=== PATIENT | female | born 1950 | race Caucasian/White ===

== ENCOUNTER 2020-05-18 10:56 | Inpatient (IN) | payer MEDICARE, SELFPAY ==
[2020-05-18] VITALS (18 sets, daily range): BP systolic 123–170; BP diastolic 71–113; PULSE 55–108; RESP 15–18; TEMP 36.1–36.9; O2SAT 96–100; BMI 52.4; BMI 51.0
--- NOTE | 2020-05-18 10:59 | EKG12_ITS ---
Test Reason : STROKE Blood Pressure : / mmHG Vent. Rate : 085 BPM Atrial Rate : 066 BPM P-R Int : 000 ms QRS Dur : 126 ms QT Int : 422 ms P-R-T Axes : 000 017 035 degrees QTc Int : 502 ms Atrial fibrillation Right bundle branch block Abnormal ECG Confirmed by ADRIANE PIERSON, JULISSA ([id number]), photo editor TANJA WILKERSON ([id number]) on 05/31/2020 9:41:26 A M Referred By: VELMA Confirmed By:MARCELLA FORREST MD
--- NOTE | 2020-05-18 10:59 | CT_ITS ---
STUDY: CT BRAIN WITHOUT CONTRAST REASON FOR EXAM: Female, 70 years old. Stroke symptoms, left sided facial droop, slurred speech, diabetic, fall recently RADIATION DOSAGE (If Supplied By Facility): CTDIvol = ( 44.99 ) mGy, DLP = ( 829.85 ) mGycm TECHNIQUE: Transaxial CT imaging of the brain was performed without administration of intravenous contrast material. Individualized dose optimization techniques were used for this CT. COMPARISON: No relevant priors. FINDINGS: Scalp hematoma overlying the right frontal parietal bone. Normal calvarium. There is effacement of the sulci overlying the right temporal parietal lobe with edematous changes suggestive of infarction involving the distribution of the right middle cerebral artery territory. There are areas of decreased attenuation within the white matter tracts of the supratentorial brain, consistent with microvascular disease changes. Old lacunar infarct in the insular cortex of the left temporal lobe. Normal brainstem. Normal cerebellum. There is no intracranial hemorrhage. There are no findings of an acute ischemic infarction. Normal visualized paranasal sinuses. CT/Brain/Head without Contrast IMPRESSION: Findings in keeping with infarction involving the right middle cerebral artery territory. N.B. : The above information has been verbally conveyed by Shaggy Pace to Dr Jimi MD, on 05/18/2020 11:19:01 (ET). Electronically Signed: Shaggy Pace, at 11:20 EDT , Service support ,
--- NOTE | 2020-05-18 11:06 | CT_ITS ---
STUDY: CTA HEAD AND NECK WITH CONTRAST REASON FOR EXAM: Female, 70 years old. CVA, left facial droop, slurred speech, hx diabetes. RADIATION DOSAGE (If Supplied By Facility): CTDIvol = ( 27.59 ) mGy, DLP = ( 790.93 ) mGycm TECHNIQUE: CT angiography was performed with a multi-detector CT scanner. Data acquisition was obtained from the skull base through the vertex following intravenous administration of IV 100mL [id number]-[id number]. MIP images were reconstructed from the axial data set. Post-processing of the angiographic images was performed, with multiplanar reformation and 3D reconstruction. Individualized dose optimization techniques were used for this CT. COMPARISON: No relevant priors. FINDINGS: Normal bilateral petrous carotid arteries. There is calcified plaque formation of the right cavernous carotid artery, without a cross-sectional luminal stenosis. There is calcified plaque formation of the left cavernous carotid artery, without a cross-sectional luminal stenosis. Normal right A1 segments of the anterior cerebral artery. Normal left A1 segments of the anterior cerebral artery. Normal intact anterior communicating artery (ACOM). Normal bilateral A2 segments of the anterior cerebral arteries. Normal right M1 and M2 segments of the middle cerebral arteries, with a normal M1 bifurcation. Normal left M1 and M2 segments of the middle cerebral arteries, with a normal M1 bifurcation. Normal right posterior communicating artery (PCOM). Normal left posterior communicating artery (PCOM). Normal bilateral vertebral arteries. Normal basilar artery with a normal basilar bifurcation. The visualized bilateral superior cerebellar (SCA) arteries are normal. Normal bilateral P1, P2 and visualized P3 segments of the posterior cerebral arteries. There is no demonstrated aneurysm of the hoopa of [place]. AORTIC ARCH: There is atherosclerotic calcific plaque formation of the aortic arch and great vessels arising from the aortic arch, without a hemodynamically significant stenosis. There is a normal origin of the brachiocephalic, left common carotid, and left subclavian arteries. . RIGHT CAROTID ARTERIES: Normal right common carotid artery (CCA). Normal right common carotid bulb. There is mild atherosclerotic plaque formation of the origin of the right internal carotid artery with less than 50% cross sectional diameter stenosis. Normal visualized cervical portion of the right internal carotid artery. Normal origin of the right external carotid artery (ECA). LEFT CAROTID ARTERIES: Normal left common carotid artery (CCA). Normal left common carotid bulb. There is moderate atherosclerotic plaque formation of the origin of the left internal carotid artery with an estimated stenosis of 50-69% stenosis. Normal visualized cervical portion of the left internal carotid artery. Normal origin of the left external carotid artery (ECA). VERTEBRAL ARTERIES: Normal bilateral vertebral arteries. Prior anterior fusion at the C5-C6 level. CT/CTA Head AND Neck W/ Contrast IMPRESSION: Calcified plaques at the origin of the right internal carotid artery causing less than 50% narrowing. Calcified plaques at the level of the origin of the left internal carotid artery causing between 50 and 69% stenosis. Electronically Signed: Shaggy Pace, at 11:39 EDT , Service support ,
--- NOTE | 2020-05-18 11:25 | CM.ED ---
SOCIAL WORK Reason for Consult: Stroke Alert Responded to Stroke Alert, patient's daughter at bedside. Patient and Dr. Krause on consult with [facility]. This worker to remain available for needs. Miri Parra, HISTORIAN RESEARCH ASSISTANT, HEALTH TECHNICAL WRITER
[2020-05-18] MEDS: 0.9% Normal Saline 1,000 ML 999 ML IV (11:45)
[2020-05-18 11:59] LABS: Absolute Lymphocyte Count 1.15 X10^3/uL (0.83-4.51); Absolute Neutrophil Count 9.1 X10^3/uL (2.0-7.7); Basophil# 0.03 X10^3/uL; Basophil% 0.3 % (0-1); Eosinophil# 0.14 X10^3/uL; Eosinophils% 1.2 % (0-5); Hematocrit 35.2 % (37-47); Hemoglobin 10.8 g/dL (12.0-15.0); International Normalized Ratio 1.2; Lymphocyte # 1.15 X10^3/ul (4.0); Lymphocyte % 10.2 % (19-41); Mean Corp Hgb Conc 30.7 g/dL (32-36); Mean Corpuscular Volume 101.1 fL (81-99); Mean Platelet Vol. 9.4 fl (6.2-12.0); Monocyte# 0.67 X10^3/uL; NRBC Flagged by Analyzer 0 % (0-5); Neutrophil # 9.11 X10^3/uL (2.7-7.7); Platelet Count 228 K/mm3 (150-450); Prothrombin Time (Protime)PT. 14.8 SECONDS (11.7-14.9); RBC Distribution Width CV 15.3 % (11.6-14.6); RBC Distribution Width SD 56.2 fl (35.1-43.9); Red Blood Count 3.48 M/mm3 (4.2-5.4); White Blood Count 11.3 K/mm3 (4.4-11.0)
[2020-05-18 12:00] LABS: Partial Thromboplast Time 29.2 Seconds (24.1-36.2)
--- NOTE | 2020-05-18 12:07 | ED.VISSUMM ---
- ER Visit Summary Date of Service: 05/18/20 Chief Complaint: Decreased level of consciousness History of Present Illness: The patient is a [address] Lynn. Daughter reports that at 4:00 this morning she heard the patient in the bathroom and went in and she had fallen in the bathtub. Patient told her that she was standing up to pull up her pants when she lost her balance. She did not have a loss of consciousness. She was seen in outlying emergency department and had a CT, blood work, and x-ray, and UA that were negative. She was discharged to home. Daughter reports they were home for approximately 45 minutes and the patient has been fine when all of a sudden she had onset of a left facial droop and difficulty speaking. Daughter reports that she called the squad immediately. Accu-Chek by them was 170s. She did not see any seizure activity. Physical Examination: Vitals: Stable. Afebrile. General: Well-nourished and well-developed. Head: Normocephalic atraumatic. Neck: Supple, no lymphadenopathy. No JVD. Nontender. Cardiovascular: Regular rate and rhythm. No murmurs. Respiratory: No respiratory distress. Clear to auscultation bilaterally. Abdominal: Soft, nontender, nondistended, normal bowel sounds. No guarding, rebound, or peritoneal signs. Back: Nontender. Extremities: Nontender, no edema. Skin: Normal color, no rash. Neurologic: Upon arrival to the emergency department the patient is unresponsive. Psych: Normal affect. Test Results: EKG is A. fib 85 with a right bundle branch block. There is no old EKG for comparison. CBC shows a white count of 11.3 with 81 segmented neutrophils, 10 lymphocytes, 1.3% immature granulocytes. H&H 10.8 and 35.2. INR is 1.2. PTT is 29.2. BMP shows a chloride of 110, BUN 34, creatinine 1.3, glucose 168, calcium 7.8. Clinical Impression(s) from Imaging Studies Brain CT 05/18/20 10:59 IMPRESSION: Findings in keeping with infarction involving the right middle cerebral artery territory. N.B. : The above information has been verbally conveyed by Shaggy Pace to Dr Jimi MD, on 05/18/2020 11:19:01 (ET). Electronically Signed: Shaggy Campbellelizabeth, at 11:20 EDT , Service support , ADDENDUM: 05/18/20 1127 IMPRESSION: Findings in keeping with infarction involving the right middle cerebral artery territory. N.B. : The above information has been verbally conveyed by Shaggy Pace to Dr Jimi MD, on 05/18/2020 11:19:01 (ET). Electronically Signed: Shaggy Sanjeev, at 11:20 EDT , Service support , Head/Neck CTA 05/18/20 11:06 IMPRESSION: Calcified plaques at the origin of the right internal carotid artery causing less than 50% narrowing. Calcified plaques at the level of the origin of the left internal carotid artery causing between 50 and 69% stenosis. Electronically Signed: Shaggy Sanjeev, at 11:39 EDT , Service support , Emergency Department Course and Treatment: When the patient returned from CT she now arouses to voice and answers yes/no questions appropriately. She is able to move all of her extremities. Her NIH scale is 8 when she got back from CT. She does have a left facial droop and seems to have some weakness of her left upper extremity. She was discussed with the neurologist at [facility]. As the CT already shows a stroke there is question as to the timeframe of the onset of this. It may have started at 4:00 this morning and not shown up on her prior CT. This combined with the fact the patient's had a spontaneous intracranial hemorrhage while she was on Eliquis(nontraumatic) she is not felt to be a TPA candidate. Treatment Plan: The patient will be discussed with the hospitalist and admitted for further evaluation and treatment. Disposition: Admitted in serious condition. Impression: 1. Stroke. 2. Atrial fibrillation. 3. Critical care time 30 minutes. This note was generated with i-[email or web address] software. It may contain incorrect words, spelling, and punctuation that were not noted in review of the chart prior to signing ED Disposition - Plan for ED Patient: Referrals: Care Physician,No Primary [NON-STAFF] -
[2020-05-18 12:11] LABS: Anion Gap 4 (5-15); BUN 34 mg/dL (7-18); BUN/Creat Ratio 26.2 RATIO (10-20); Calcium,Total 7.8 mg/dL (8.5-10.1); Chloride 110 mmol/L (98-107); EST Glomerular Filtration Rate 43 mL/min (>60); Est Glom Filt Rate - Afr Amer 52 mL/min (>60); Estimated Creatinine Clearance 32.76 ml/min; Glucose 168 mg/dL (74-106); Potassium 4.3 mmol/L (3.5-5.1); Sodium Level 142 mmol/L (136-145)
--- NOTE | 2020-05-18 12:25 | RAD_ITS ---
STUDY: X-RAY CHEST REASON FOR EXAM: Female, 70 years old. Facial droop, slurred speech, fall today. TECHNIQUE: Single AP portable view of the chest. COMPARISON: None. FINDINGS: EKG electrodes are seen. Vascular congestion. Scattered calcified granulomas. There is no demonstrated pleural abnormality. There is moderate cardiac enlargement. Normal mediastinum and deb. Normal visualized pulmonary arteries. There is atherosclerotic calcification of the aortic arch with tortuosity. There are degenerative changes of the visualized thoracic spine. Prior fusion in the lower cervical spine. There is no demonstrated abnormality of the visualized soft tissue structures of the upper abdomen. RAD/Chest 1 View IMPRESSION: Cardiomegaly and vascular congestion. Electronically Signed: Shaggy Pace, at 12:44 EDT , Service support ,
[2020-05-18] MEDS: 0.9% Normal Saline 1,000 ML 100 ML IV (12:52)
--- NOTE | 2020-05-18 14:22 | ECHOCS_ITS ---
Reason For Study: TIA/CVA Procedure This was a 2D Doppler, Color Flow transthoracic echocardiogram. The study was technically difficult. Contrast injection was performed. Exam performed portable in patient room. Left Ventricle Normal LV size. Left ventricular systolic function is normal. The estimated ejection fraction is 65 %. Unable to assess diastolic dysfunction. No regional wall motion abnormalities noted. Right Ventricle Normal RV size. Normal systolic function. Atria The left atrium is mildly enlarged. The right atrium is mildly enlarged. No doppler evidence for ASD. Bubble contrast study negative for right to left interatrial shunt. Mitral Valve There is moderate mitral annular calcification. Extension of the mitral annular calcification onto the base of the posterior mitral valve leaflet. Trivial mitral valve insufficiency. Tricuspid Valve Normal tricuspid valve. Trivial tricuspid valve insufficiency. Right ventricular systolic pressure estimated to be 40 mmHg. Aortic Valve Trisinus/trileaflet aortic valve. Mild diffuse aortic valve thickening. Mild focal aortic valve calcification. Pulmonic Valve The pulmonic valve is not well visualized. Great Vessels Normal sized aortic root. Pericardium/Pleural No pericardial effusion. Medication Performed a rapid injection of agitated mix of 9 cc saline and 1cc air to assess for atrial septal defect. Diluted definity 5ml given slow IV push to enhance endocardial definition. MMode/2D Measurements & Calculations LVIDd: 4.1 cm IVSd: 1.3 cm Ao root diam: 3.2 cm LVIDs: 2.7 cm LVPWd: 1.3 cm FS: 34.6 % LAV(MOD-bp): 62.9 ml LVAd ap4: 23.5 cm2 SV(MOD-sp4): 40.5 ml LAV(MOD-bp) Indexed: 28.2 ml/m2 EDV(MOD-sp4): 62.8 ml LAV(MOD-sp2): 59.9 ml EDV(sp4-el): 66.2 ml LAV(MOD-sp4): 61.1 ml LVAs ap4: 12.3 cm2 ESV(MOD-sp4): 22.3 ml ESV(sp4-el): 23.2 ml EF(MOD-sp4): 64.4 % EF(sp4-el): 65.0 % SV(sp4-el): 43.1 ml LA A4 area: 21.6 cm2 LA dimension(2D): 3.8 cm RA A4 area: 22.3 cm2 Doppler Measurements & Calculations MV E max yoshi: 151.2 cm/sec Ao V2 max: 145.0 cm/sec LV V1 max: 80.7 cm/sec Ao max P.5 mmHg LV V1 max P.6 mmHg PA V2 max: 134.0 cm/sec TR max yoshi: 302.3 cm/sec TR max P.5 mmHg Interpretation Summary The study was technically difficult. Contrast injection was performed. Left ventricular systolic function is normal. The estimated ejection fraction is 65 %. The left atrium is mildly enlarged. The right atrium is mildly enlarged. There is moderate mitral annular calcification. Extension of the mitral annular calcification onto the base of the posterior mitral valve leaflet. Trivial mitral valve insufficiency. Trivial tricuspid valve insufficiency. Mild diffuse aortic valve thickening. Mild focal aortic valve calcification. Right ventricular systolic pressure estimated to be 40 mmHg. Unable to assess diastolic dysfunction. Bubble contrast study negative for right to left interatrial shunt. Ordering Physician: Ang Chen Referring Physician: LARRY DECKER Performed By: Meg Street RDCS
--- NOTE | 2020-05-18 15:09 | MRI_ITS ---
We are attempting to reach an attending provider to discuss findings. An addendum with communication details will be sent when the communication is complete. STUDY: MRI BRAIN WITHOUT CONTRAST REASON FOR EXAM: Female, 70 years old. cva, found unresponsive, lt facial droop, slurred speech; TECHNIQUE: Standardized multiplanar fat and water weighted pulse sequences were obtained. COMPARISON: CT of the brain 05/18/2020 FINDINGS: Mild atrophy and moderate periventricular white matter ischemic changes.. There is restricted diffusion in the right temporal frontal and parietal lobes in distribution of the right middle cerebral artery consistent with acute ischemic infarction. There is focal gliosis within the left pontine body at the pontomesencephalic junction consistent with acute ischemic changes There is also restricted diffusion within the right basal ganglia and body of the caudate nucleus consistent with acute lacunar infarct.. There is no extra-axial fluid accumulation. Normal flow voids within the major intracranial circulation suggesting patency by spin echo criteria. Normal sella turcica, pituitary gland, infundibular stalk, optic chiasm and hypothalamus. Normal tectal plate and pineal gland. Normal midbrain, getachew and medulla. Normal cerebellum. Normal basal cisterns. Normal bilateral temporal bones. Normal bilateral internal auditory canals. No demonstrated orbital abnormality, within the constraints of a routine brain study. There is minor mucosal thickening of the ethmoid air cells bilaterally.. Normal calvarium and skull base. Normal visualized soft tissue structures. Normal visualized upper cervical spine. MRI/Brain without Contrast IMPRESSION: Acute ischemic changes in the right temporal frontal and parietal lobes. Acute lacunar infarct in right basal ganglia and body of the caudate nucleus. Acute brainstem infarct at the left pontomesencephalic junction. Electronically Signed: Micky Lim MD at 18:55 EDT , Service support ,
--- NOTE | 2020-05-18 15:27 | NURSING ---
Pt ambulated in to door and back to bed on 4l n/c. Pulse ox dropped to 83% on the 4L. Pt sat on side of bed and purse lipped breathed in orthopneic position until pulse ox retuned to 92%. Took a few minutes to recover.
--- NOTE | 2020-05-18 15:50 | PCM.HP.STD ---
Problem List (1) CVA (cerebral vascular accident) Status: Acute (2) Hemorrhagic stroke Status: Resolved (3) TIA (transient ischemic attack) Status: Resolved (4) Afib Status: Chronic (5) Morbid obesity Status: Chronic (6) Diabetes Status: Chronic History of Present Illness Date of Admission: 05/18/20 Chief Complaint: altered mental status The patient is a 70 year old F with pmhx of hemorrhagic stroke, TIA, diabetes, morbid obesity, who presented to the ER with altered mental status. The patient is currently very lethargic and minimally responsive to questions, and family is not currently present so her history is primarily sourced from the records. She fell in the bathtub this morning, reportedly lost balance while she was trying to put on pants. She went to an ER and had a negative work-up and was sent home. She later developed left facial droop and difficulty speaking at home. This occurred about 45 minutes after arriving at home. She was brought to the emergency room where a CT of the brain revealed a MCA infarct. The patient demonstrated atrial fibrillation on EKG. She is not on anticoagulation as she has had a hemorrhagic stroke in the past. She is also had TIAs. She is only on aspirin. She in the past was on Plavix however does not take this because of her history of hemorrhagic stroke as well. She is currently resting in bed in no acute distress. She is difficult to awaken, falls back to sleep almost immediately, was only able to answer her name. She would not answer other questions. [] Past Medical History Past Medical History (Chronic Problems): Chronic Problems Afib (Chronic) Morbid obesity (Chronic) Diabetes (Chronic) Allergies Penicillins Allergy (Verified 05/18/20 12:14) PT UNABLE TO RESPOND-NEEDS F/U Home Medications: Ambulatory Orders Medication Instructions Recorded Atorvastatin Calcium 20 mg PO DAILY 05/18/20 Carbidopa/Levodopa 1 ea PO TID 05/18/20 [Carbidopa-Levodopa 25-250 Tab] Carvedilol [Coreg] 25 mg PO BID 05/18/20 Cyanocobalamin (Vitamin B-12) 1,000 mcg PO DAILY 05/18/20 [Vitamin B-12] Furosemide [Lasix] 40 mg PO DAILY 05/18/20 Glimepiride [Amaryl] 2 mg PO DAILY 05/18/20 Magnesium Oxide [Magnesium] 400 mg PO BID 05/18/20 Multivitamins,Therapeutic 1 tab PO DAILY 05/18/20 [Multivitamin] Venlafaxine HCl [Effexor Xr] 75 mg PO QHS 05/18/20 Venlafaxine HCl [Effexor] 150 mg PO BREAKFAST 05/18/20 Verapamil HCl [Verapamil ER] 240 mg PO DAILY 05/18/20 KILN FEEDER History: No pertinent KILN FEEDER history Smoking Status: Unknown if ever smoked Tobacco Use: Non-smoker Review of Systems Unable to obtain accurate/complete ROS d/t: ROS unable to be obtained due to patient with altered mental status VTE Information - Inpt Only VTE Present on Admission: No VTE Mechan Device Prophylaxis: None VTE Pharm Prophylaxis ordered?: Yes - Physical Exam Vitals/I&O's: Vital Signs Temp Pulse Resp BP Pulse Ox 98.3 F 82 18 136/108 H 96 05/18/20 14:23 05/18/20 15:01 05/18/20 14:48 05/18/20 14:23 05/18/20 14:48 Oxygen Flow Rate (L/min) 3 Oxygen Delivery Method Nasal Cannula Weight: 279 lb Body Mass Index (BMI) 51.0 Finger Stick Blood Glucose 170 Intake and Output for Last 24 Hours 05/16/20 05/17/20 05/18/20 23:59 23:59 23:59 Intake Total 1000 / 1000 Balance 1000 / 1000 General: Alert, Confused, Lethargic HEENT: Atraumatic, PERRLA, EOMI, Normocephalic Neck: Supple, No JVD, Negative Carotid Bruits Lungs: Clear to auscultation, Normal air movement Cardiovascular: Regular rate, No murmurs Abdomen: Bowel Sounds Present, Soft, Non Tender Extremities: No edema, Capillary Refill Less than 3 Seconds Skin: No rashes, No breakdown Musculoskeletal: No Tenderness to Palpation of Joints or Extremities Neurological: - - Limited due to inability to follow commands. Patient only answering her name at this point. Psych/Mental Status: - - Lethargic, confused Laboratory Results 05/18/20 10:55: WBC 11.3 H, RBC 3.48 L, Hgb 10.8 L, Hct 35.2 L, MCV 101.1 H, MCH 31.0, MCHC 30.7 L, RDW Std Deviation 56.2 H, RDW Coeff of Ever 15.3 H, Plt Count 228, MPV 9.4, Immature Gran % (Auto) 1.300 H, Neut % (Auto) 81.0 H, Lymph % (Auto) 10.2 L, [place] % (Auto) 6.0, Eos % (Auto) 1.2, Baso % (Auto) 0.3, Absolute Neuts (auto) 9.1 H, Absolute Lymphs (auto) 1.15, Nucleated RBC % 0 05/18/20 10:55: PT 14.8, INR 1.2, APTT 29.2 05/18/20 10:55: Sodium 142, Potassium 4.3, Chloride 110 H, Carbon Dioxide 28.0, Anion Gap 4 L, BUN 34 H, Creatinine 1.30 H, Estim Creat Clear Calc 32.76, Est GFR (MDRD) Af Amer 52 L, Est GFR (MDRD) Non-Af 43 L, BUN/Creatinine Ratio 26.2 H, Glucose 168 H, Calcium 7.8 L, Troponin I < 0.015 Current Medications Hydralazine HCl (Hydralazine 20 Mg/Ml Vial) 5 mg IV Q30M PRN PRN Reason: to maintain BP goals Sodium Chloride () 1,000 mls @ 100 mls/hr IV .Q10H ONE Stop: 05/18/20 20:58 Last Admin: 05/18/20 12:52 Dose: 100 mls/hr Documented by: Influenza Virus Vaccine Quadrival (Influenza Vaccine (6mos+)/Pf 0.5 Ml Syringe) 0.5 ml IM .ONCE ONE Stop: 05/19/20 10:01 Labetalol HCl (Labetalol (Prefilled) 20 Mg/4 Ml) 10 - 20 mg IV Q10M PRN PRN PRN Reason: to Maintain BP Goals Sodium Chloride (0.9% Saline Lock 10 Ml Syringe) 10 - 40 ml IV UD PRN PRN Reason: SALINE FLUSH Assessment/Plan All Active Problems CVA (cerebral vascular accident) (Acute) Hemorrhagic stroke (Resolved) TIA (transient ischemic attack) (Resolved) 1. CVA-acute versus subacute-present on CT of the brain. CTA of the head and neck with 50 to 69% stenosis left internal carotid artery. History of hemorrhagic stroke. EKG with atrial fibrillation. Obtain MRI of the brain. Consult neurology in the morning. Echocardiogram in the morning. PT OT, ST eval's. She will likely need to continue aspirin and atorvastatin. Needs speech clearance for swallowing. Trop neg. 2. Atrial fibrillation-cannot have anticoagulation due to history of hemorrhagic stroke. Rate is controlled. Will maintain on telemetry. Patient is on verapamil at home. 3. History of Parkinson's - continue carbidopa, levodopa 4. Type 2 diabetes with morbid obesity -hold glimepiride-start sliding scale insulin. Check hemoglobin A1c. Office Support Specialist consult when pt ok for PO. 5. Suspected CKD stage III-Baseline unclear, will trend BMP. 6. Macrocytic anemia - check b12 / folate. unclear baseline. DVT prophylaxis: Lovenox Discharge planning: Fell at home this morning, no acute stroke, likely will need care home at the time of discharge. This patient was seen by Mahendra Rivers PA-C under the supervision of Doctor Chen.
--- NOTE | 2020-05-18 15:56 | NURSING ---
pt off floor to CT
[2020-05-18 17:34] LABS: Hemoglobin A1c 8.2 % (3.8-5.6)
--- NOTE | 2020-05-18 18:08 | NURSING ---
Pt in MRI, restless, MRI staff called and asked for nurse to come evaluate pt. Pulse ox 95% on 4l n/c. no resp distress noted. pt was restful at that time. MRI staff will call if they need ativan.
[2020-05-18] MEDS: Enoxaparin 40 MG/0.4 ML Syringe SC (18:46)
[2020-05-19] VITALS (8 sets, daily range): BP systolic 151–179; BP diastolic 82–104; PULSE 78–104; RESP 16–19; TEMP 36.8–37.4; O2SAT 95–99; BMI 51.0
[2020-05-19] MEDS: Acetaminophen 650 MG Suppository RECTAL ×2 (00:29→20:40)
[2020-05-19] MEDS: Enoxaparin 40 MG/0.4 ML Syringe SC (05:49)
[2020-05-19 06:52] LABS: Cholesterol 94 mg/dL (200); High Density Lipoprotein 32 mg/dL; Triglycerides 226 mg/dL; Very Low Density Lipoprotein 45 mg/dL (5-40)
--- NOTE | 2020-05-19 15:30 | PCM.PROGNOTE ---
Patient Problems: Active and Suspected Problems CVA (cerebral vascular accident) (Acute) Subjective: Patient was seen and examined today, she remains somnolent today, speech therapy placed her on a diet if she is alert enough to eat. Patient's MRI of the brain resulted as showing an acute infarction on the right temporal, frontal and parietal lobes, in addition there was an acute lacunar infarct in the right basal ganglia and body of the caudate nucleus, and an acute brainstem infarct at the left pontomesencephalic junction. I have not talked to the daughter regarding these findings. Patient will not be a candidate for any anticoagulation for 10 to 14 days however. Patient's echocardiogram did not show any evidence of thrombus, patient's EF was 65%. Patient had mild pulmonary hypertension. - Physical Exam Vitals/I&O's: Vital Signs Temp Pulse Resp BP Pulse Ox 99.5 F H 95 18 178/116 H 94 05/19/20 09:40 05/19/20 11:00 05/19/20 09:40 05/19/20 09:40 05/19/20 09:40 Oxygen Flow Rate (L/min) 2.5 Oxygen Delivery Method Nasal Cannula Weight: 126.552 kg Body Mass Index (BMI) 51.0 Finger Stick Blood Glucose 170 Intake and Output for Last 24 Hours 05/17/20 05/18/20 05/19/20 23:59 23:59 23:59 Intake Total 1321 / 1321 1060 / 1060 Output Total 300 / 800 1000 / 1000 Balance 1021 / 521 60 / 60 General: No apparent distress, Well developed, Well nourished, Lethargic HEENT: Atraumatic, PERRLA, EOMI, Normocephalic Oral: Moist Mucosa Neck: Supple, No JVD, No Nuchal Rigidity, Trachea Midline Lungs: Clear to auscultation, Normal air movement, No rhonchi, No wheeze Cardiovascular: No murmurs, PMI Normal, Irregular Rate, No rub noted Abdomen: Bowel Sounds Present, Soft, Non Tender, Non-Distended, Obese Extremities: No clubbing, No cyanosis, Capillary Refill Less than 3 Seconds Skin: No rashes, No breakdown Neurological: Cranial nerves II-XII grossly intact, Sensory exam intact to light touch and pain, - - Patient is somnolent and I am unable to carry out a complete neurological examination. Psych/Mental Status: - - She is somnolent at this time and she does not arouse to verbal stimuli Laboratory Results 05/18/20 10:55: Folate 6.90 05/18/20 10:55: Hemoglobin A1c 8.2 H 05/19/20 05:45: Triglycerides 226 H, Cholesterol 94, LDL Cholesterol 17, VLDL Cholesterol 45 H, HDL Cholesterol 32 L 05/19/20 05:45: Vitamin B12 Pending Current Medications Acetaminophen (Acetaminophen 650 Mg Suppository) 650 mg RECTAL Q4H PRN PRN PRN Reason: pain 1-10, fever Last Admin: 05/19/20 00:29 Dose: 650 mg Documented by: Atorvastatin Calcium (Atorvastatin Calcium 80 Mg Tablet) 80 mg PO QHS [facility] Carbidopa/Levodopa (Carbidopa/Levodopa 25/250 Tablet) 1 tablet PO TIDAC [facility] Carvedilol (Carvedilol 12.5 Mg Tablet) 12.5 mg PO BID [facility] Enoxaparin Sodium (Enoxaparin 40 Mg/0.4 Ml Syringe) 40 mg SC DAILY@0600 [facility] Last Admin: 05/19/20 05:49 Dose: 40 mg Documented by: Furosemide (Furosemide 40 Mg Tablet) 40 mg PO DAILY [facility] Hydralazine HCl (Hydralazine 20 Mg/Ml Vial) 5 mg IV Q30M PRN PRN Reason: to maintain BP goals Insulin Human Lispro (Insulin Lispro 100 Unit/Ml Insuln.Pen) 0 unit SC Q6 [facility]; Protocol Labetalol HCl (Labetalol (Prefilled) 20 Mg/4 Ml) 10 - 20 mg IV Q10M PRN PRN PRN Reason: to Maintain BP Goals Sodium Chloride (0.9% Saline Lock 10 Ml Syringe) 10 - 40 ml IV UD PRN PRN Reason: SALINE FLUSH Venlafaxine HCl (Venlafaxine Xr 75 Mg Capsule) 225 mg PO DAILY [facility] Medical Necessity - Tobacco Use Smoking Status: Never smoker Tobacco Use: Non-smoker Assessment/Plan All Active Problems CVA (cerebral vascular accident) (Acute) Hemorrhagic stroke (Resolved) TIA (transient ischemic attack) (Resolved) #1 acute strokes in multiple areas of the brain and brainstem, secondary to probable emboli due to chronic atrial fib-again patient will not be able to be anticoagulated for 10 to 14 days, I will discuss this with the daughter tomorrow. To new PT and OT, patient will most likely have to be placed in a retirement facility at least short-term. #2 chronic atrial fibrillation-patient is not anticoagulated due to past history of hemorrhagic stroke, it would be hazardous to anticoagulate the patient at this time #3 morbid obesity #4 type 2 diabetes #6 chronic hypoxic respiratory failure #7 obstructive sleep apnea-noncompliant with CPAP Inpatient E&M: 43640 Subs Hosp L2
[2020-05-19] MEDS: Carbidopa/Levodopa 25/250 Tablet PO (16:19)
[2020-05-19 18:30] LABS: Bedside Glucose 152 mg/dL (70-110)
[2020-05-19] MEDS: Insulin Lispro 100 UNIT/ML INSULN.PEN SC (18:30)
[2020-05-19] MEDS: Carvedilol 12.5 MG Tablet PO (20:40)
[2020-05-19] MEDS: Atorvastatin Calcium 80 MG Tablet PO (20:40)
[2020-05-19 23:41] LABS: Bedside Glucose 127 mg/dL (70-110)
[2020-05-20] VITALS (12 sets, daily range): BP systolic 112–197; BP diastolic 50–126; PULSE 48–102; RESP 16–20; TEMP 36–36.9; O2SAT 48–98; BMI 51.0
[2020-05-20] MEDS: Acetaminophen 650 MG Suppository RECTAL (03:25)
[2020-05-20] MEDS: 0.9% Saline Lock 10 ML Syringe IV (05:36)
[2020-05-20] MEDS: Haloperidol Lactate 5 MG/ML Vial IV (05:36)
[2020-05-20] MEDS: Enoxaparin 40 MG/0.4 ML Syringe SC (05:59)
[2020-05-20] MEDS: Carbidopa/Levodopa 25/250 Tablet PO ×3 (06:00→16:14)
[2020-05-20] MEDS: Verapamil SR 240 MG Tablet PO (06:37)
[2020-05-20 06:50] LABS: Bedside Glucose 145 mg/dL (70-110)
[2020-05-20] MEDS: Carvedilol 25 MG Tablet PO (08:23)
[2020-05-20] MEDS: Venlafaxine XR 75 MG Capsule 225 MG PO (08:23)
[2020-05-20] MEDS: Furosemide 40 MG Tablet PO (08:24)
--- NOTE | 2020-05-20 11:27 | PN_ITS ---
Patient Problems: Active and Suspected Problems CVA (cerebral vascular accident) (Acute) Reason for Visit: stroke Subjective: pt more alert today. she is forgeful repeating questions soon after being answered. No fever/chills. No cough/sob. Ongoing generalized weakness. Pt denies laterality to weakness. No dizziness/LH/vision change. Vitals/I&O's: Vital Signs Temp Pulse Resp BP Pulse Ox 98.4 F 80 16 138/87 H 96 05/20/20 11:03 05/20/20 11:03 05/20/20 11:03 05/20/20 11:03 05/20/20 11:03 Oxygen Flow Rate (L/min) 2 Oxygen Delivery Method Nasal Cannula Weight: 278 lb 15.99 oz Body Mass Index (BMI) 51.0 Finger Stick Blood Glucose 170 Intake and Output for Last 24 Hours 05/18/20 05/19/20 05/20/20 23:59 23:59 23:59 Intake Total 1321 / 1321 1300 / 1300 120 / 120 Output Total 300 / 800 1700 / 1700 150 / 150 Balance 1021 / 521 -400 / -400 -30 / -30 General: Alert, Oriented x3, Cooperative HEENT: Atraumatic, PERRLA, EOMI, Normocephalic Neck: Supple, No JVD, Negative Carotid Bruits Lungs: Clear to auscultation, Normal air movement Cardiovascular: Regular rate, No murmurs Abdomen: Bowel Sounds Present, Soft, Non Tender Extremities: No edema, Capillary Refill Less than 3 Seconds Skin: No rashes, No breakdown Musculoskeletal: No Tenderness to Palpation of Joints or Extremities, - - 2/6 weakness upper/lower extrem = bilaterally Neurological: Cranial nerves II-XII grossly intact Psych/Mental Status: Normal Affect, Appropriate, Alert and oriented to time, place, person, mood and affect Laboratory Results 05/19/20 18:26: POC Glucose 152 H 05/19/20 23:36: POC Glucose 127 H 05/20/20 05:56: POC Glucose 145 H Current Medications Acetaminophen (Acetaminophen 650 Mg Suppository) 650 mg RECTAL Q4H PRN PRN PRN Reason: pain 1-10, fever Last Admin: 05/20/20 03:25 Dose: 650 mg Documented by: Atorvastatin Calcium (Atorvastatin Calcium 80 Mg Tablet) 80 mg PO QHS [facility] Last Admin: 05/19/20 20:40 Dose: 80 mg Documented by: Carbidopa/Levodopa (Carbidopa/Levodopa 25/250 Tablet) 1 tablet PO TIDAC [facility] Last Admin: 05/20/20 06:00 Dose: 1 tablet Documented by: Carvedilol (Carvedilol 25 Mg Tablet) 25 mg PO BIDCM [facility] Last Admin: 05/20/20 08:23 Dose: 25 mg Documented by: Enoxaparin Sodium (Enoxaparin 40 Mg/0.4 Ml Syringe) 40 mg SC DAILY@0600 [facility] Last Admin: 05/20/20 05:59 Dose: 40 mg Documented by: Furosemide (Furosemide 40 Mg Tablet) 40 mg PO DAILY [facility] Last Admin: 05/20/20 08:24 Dose: 40 mg Documented by: Haloperidol Lactate (Haloperidol Lactate 5 Mg/Ml Vial) 0.5 mg IV Q4H PRN PRN PRN Reason: AGITATION Last Admin: 05/20/20 05:36 Dose: 0.5 mg Documented by: Haloperidol Lactate (Haloperidol Lactate 5 Mg/Ml Vial) 0.5 mg IM Q4H PRN PRN PRN Reason: AGITATION Hydralazine HCl (Hydralazine 20 Mg/Ml Vial) 5 mg IV Q30M PRN PRN Reason: to maintain BP goals Insulin Human Lispro (Insulin Lispro 100 Unit/Ml Insuln.Pen) 0 unit SC Q6 [facility]; Protocol Last Admin: 05/20/20 06:16 Dose: Not Given Documented by: Labetalol HCl (Labetalol (Prefilled) 20 Mg/4 Ml) 10 - 20 mg IV Q10M PRN PRN PRN Reason: to Maintain BP Goals Sodium Chloride (0.9% Saline Lock 10 Ml Syringe) 10 - 40 ml IV UD PRN PRN Reason: SALINE FLUSH Last Admin: 05/20/20 05:36 Dose: 10 ml Documented by: Venlafaxine HCl (Venlafaxine Xr 75 Mg Capsule) 225 mg PO DAILY [facility] Last Admin: 05/20/20 08:23 Dose: 225 mg Documented by: Verapamil HCl (Verapamil Sr 240 Mg Tablet) 240 mg PO DAILY [facility] Last Admin: 05/20/20 06:37 Dose: 240 mg Documented by: STROKE Vital Signs/Narrative: Vital Signs Temp Pulse Resp BP BP Pulse Ox 05/20/20 11:03 98.4 F 80 16 138/87 H 96 05/20/20 08:17 100 18 162/97 H 98 05/20/20 07:39 94 Medical Necessity - Tobacco Use Smoking Status: Never smoker Tobacco Use: Non-smoker Assessment/Plan All Active Problems CVA (cerebral vascular accident) (Acute) Hemorrhagic stroke (Resolved) TIA (transient ischemic attack) (Resolved) 1. Acute strokes - right temporal/frontal/parietal lobes. acute lacunar infarct right basal ganglia, body of the caudate nucleus. Acute brainstem infarct left pontomesencephalic junction. allergic to aspirin. no plavix or DOAC due to hx hemorrhagic stroke. continue PT/OT/ST. pt is more alert and talkative today. Echo with negative bubble study, EF 65%, RVSP 40 mmHg 2. Atrial fibrillation-cannot have anticoagulation due to history of hemorrhagic stroke. Rate is controlled. Will maintain on telemetry. continue verapimil, coreg. 3. History of Parkinson's - continue carbidopa, levodopa 4. Type 2 diabetes with morbid obesity -A1C 8.2. Continue SSI and conitnue to hold amaryl. 5. Suspected CKD stage III-Baseline unclear, will trend BMP. 6. Macrocytic anemia - folate normal, b12 pending. 7. Debility - needs SNF placement. significant generalized weakness. DVT prophylaxis: Lovenox Discharge planning: SNF This patient was seen by Mahendra Rivers PA-C under the supervision of Doctor Chen.
[2020-05-20] MEDS: Insulin Lispro 100 UNIT/ML INSULN.PEN SC (11:39)
[2020-05-20 11:46] LABS: Bedside Glucose 202 mg/dL (70-110)
[2020-05-20] MEDS: Carvedilol 12.5 MG Tablet PO (16:21)
[2020-05-20 16:45] LABS: Bedside Glucose 141 mg/dL (70-110)
[2020-05-20] MEDS: Atorvastatin Calcium 80 MG Tablet PO (22:32)
[2020-05-20 22:56] LABS: Bedside Glucose 145 mg/dL (70-110)
[2020-05-21] VITALS (11 sets, daily range): BP systolic 109–174; BP diastolic 58–100; PULSE 31–99; RESP 16–18; TEMP 36.2–37.1; O2SAT 94–99; BMI 51.0
[2020-05-21] MEDS: Carbidopa/Levodopa 25/250 Tablet PO ×3 (06:17→16:07)
[2020-05-21] MEDS: Enoxaparin 40 MG/0.4 ML Syringe SC (06:17)
[2020-05-21] MEDS: Insulin Lispro 100 UNIT/ML INSULN.PEN SC ×3 (06:57→16:07)
[2020-05-21 07:05] LABS: Bedside Glucose 153 mg/dL (70-110)
[2020-05-21] MEDS: Furosemide 40 MG Tablet PO (09:04)
[2020-05-21] MEDS: Carvedilol 12.5 MG Tablet PO (09:04)
[2020-05-21] MEDS: Venlafaxine XR 75 MG Capsule 225 MG PO (09:05)
[2020-05-21] MEDS: Verapamil SR 240 MG Tablet PO (09:05)
--- NOTE | 2020-05-21 10:38 | PCM.EXTCARCO ---
- Diet 05/19/20 10:07 Diet: Regular - General Food consistency:: Pureed Liquid Consistency:: Regular/Thin Is pt able to select menu?: No Diet Comments: total feed/supervision, only feed when alert, single bites/sips - Routine Orders/Code Status Suppository Type: Dulcolax 10mg Suppository Frequency: Daily PRN O2 Frequency: Continuous Keep PO Greater than or Equal to (%): 89 Routine Lab Work: CBC - 5 days, BMP - 5 days Code Status: Full Code - Therapies Physical Therapy: Eval and Treat Occupational Therapy: Eval and Treat Speech Therapy: Eval and Treat - Problem/Diagnosis (1) CVA (cerebral vascular accident) Status: Acute (2) Hemorrhagic stroke Status: Resolved (3) TIA (transient ischemic attack) Status: Resolved (4) Afib Status: Chronic (5) Morbid obesity Status: Chronic (6) Diabetes Status: Chronic (7) Dysphagia Status: Chronic (8) Parkinson disease Status: Chronic - Allergies/Procedures Done in Hospital Allergies/Adverse Reactions: Allergies aspirin Allergy (Verified 05/18/20 23:52) Hives Penicillins Allergy (Verified 05/18/20 12:14) PT UNABLE TO RESPOND-NEEDS F/U Procedures: 2-D Echocardiogram - Type of Care/Length of Stay Estimated LOS: Convalescent Care Less Than 30 days Type of Care Needed: Skilled Rehab Potential: Fair Prognosis: Fair - Additional Orders/Day of Discharge Day of Discharge: 05/21/20 - Dietary and Speech Recommendations Dietitian Recommendations/Changes: Will continue regular diet, consistency per [employer] until adequate PO intake at meals is established. As adequate PO intake is established, recommend cardiac, consistent CHO diet, consistency per [employer]. - Follow Up Care Primary Care Physician: Care Physician,No Primary [NON-STAFF] - Please follow up with your Primary Care Physician in: 2 weeks Please Follow Up With: Chivo Vivar MD When: 2 weeks
[2020-05-21 11:11] LABS: Bedside Glucose 212 mg/dL (70-110)
[2020-05-21 11:28] LABS: Vitamin B12 > 2000 pg/mL (211-911)
--- NOTE | 2020-05-21 13:10 | PCM.PN.HOSP ---
<Mahendra Rivers PA - Last Filed: 05/21/20 13:10> Patient Problems: Active and Suspected Problems CVA (cerebral vascular accident) (Acute) Reason for Visit: CVA Subjective: Generalized weakness, no focal deficits. No fever/chills. No SOB/cough. No N/V/D. Vitals/I&O's: Vital Signs Temp Pulse Resp BP Pulse Ox 98.7 F 97 18 160/100 H 96 05/21/20 08:50 05/21/20 08:50 05/21/20 08:50 05/21/20 08:50 05/21/20 08:50 Oxygen Flow Rate (L/min) 2 Oxygen Delivery Method Nasal Cannula Weight: 278 lb 15.99 oz Body Mass Index (BMI) 51.0 Finger Stick Blood Glucose 170 Intake and Output for Last 24 Hours 05/19/20 05/20/20 05/21/20 23:59 23:59 23:59 Intake Total 1300 / 1300 520 / 640 420 / 420 Output Total 1700 / 1700 850 / 950 100 / 100 Balance -400 / -400 -330 / -310 320 / 320 General: Alert, Oriented x3, Cooperative HEENT: Atraumatic, PERRLA, EOMI, Normocephalic Neck: Supple, No JVD, Negative Carotid Bruits Lungs: Clear to auscultation, Normal air movement Cardiovascular: Regular rate, No murmurs Abdomen: Bowel Sounds Present, Soft, Non Tender Extremities: No edema, Capillary Refill Less than 3 Seconds Skin: No rashes, No breakdown Musculoskeletal: No Tenderness to Palpation of Joints or Extremities Neurological: Cranial nerves II-XII grossly intact Psych/Mental Status: Normal Affect, Appropriate, Alert and oriented to time, place, person, mood and affect Laboratory Results 05/19/20 05:45: Vitamin B12 > 2000 H 05/20/20 16:08: POC Glucose 141 H 05/20/20 22:35: POC Glucose 145 H 05/21/20 06:56: POC Glucose 153 H 05/21/20 10:22: COVID-19 (JAYME) Not Detected 05/21/20 11:01: POC Glucose 212 H Current Medications Acetaminophen (Acetaminophen 650 Mg Suppository) 650 mg RECTAL Q4H PRN PRN PRN Reason: pain 1-10, fever Last Admin: 05/20/20 03:25 Dose: 650 mg Documented by: Atorvastatin Calcium (Atorvastatin Calcium 80 Mg Tablet) 80 mg PO QHS [facility] Last Admin: 05/20/20 22:32 Dose: 80 mg Documented by: Carbidopa/Levodopa (Carbidopa/Levodopa 25/250 Tablet) 1 tablet PO TIDAC [facility] Last Admin: 05/21/20 11:01 Dose: 1 tablet Documented by: Carvedilol (Carvedilol 12.5 Mg Tablet) 12.5 mg PO BIDCM [facility] Last Admin: 05/21/20 09:04 Dose: 12.5 mg Documented by: Enoxaparin Sodium (Enoxaparin 40 Mg/0.4 Ml Syringe) 40 mg SC DAILY@0600 [facility] Last Admin: 05/21/20 06:17 Dose: 40 mg Documented by: Furosemide (Furosemide 40 Mg Tablet) 40 mg PO DAILY [facility] Last Admin: 05/21/20 09:04 Dose: 40 mg Documented by: Haloperidol Lactate (Haloperidol Lactate 5 Mg/Ml Vial) 0.5 mg IV Q4H PRN PRN PRN Reason: AGITATION Last Admin: 05/20/20 05:36 Dose: 0.5 mg Documented by: Haloperidol Lactate (Haloperidol Lactate 5 Mg/Ml Vial) 0.5 mg IM Q4H PRN PRN PRN Reason: AGITATION Hydralazine HCl (Hydralazine 20 Mg/Ml Vial) 5 mg IV Q30M PRN PRN Reason: to maintain BP goals Insulin Human Lispro (Insulin Lispro 100 Unit/Ml Insuln.Pen) 0 unit SC [facility]; Protocol Last Admin: 05/21/20 11:01 Dose: 4 units Documented by: Labetalol HCl (Labetalol (Prefilled) 20 Mg/4 Ml) 10 - 20 mg IV Q10M PRN PRN PRN Reason: to Maintain BP Goals Sodium Chloride (0.9% Saline Lock 10 Ml Syringe) 10 - 40 ml IV UD PRN PRN Reason: SALINE FLUSH Last Admin: 05/20/20 05:36 Dose: 10 ml Documented by: Venlafaxine HCl (Venlafaxine Xr 75 Mg Capsule) 225 mg PO DAILY [facility] Last Admin: 05/21/20 09:05 Dose: 225 mg Documented by: Verapamil HCl (Verapamil Sr 240 Mg Tablet) 240 mg PO DAILY [facility] Last Admin: 05/21/20 09:05 Dose: 240 mg Documented by: Medical Necessity - Tobacco Use Smoking Status: Never smoker Tobacco Use: Non-smoker Assessment/Plan All Active Problems CVA (cerebral vascular accident) (Acute) Hemorrhagic stroke (Resolved) TIA (transient ischemic attack) (Resolved) 1. Acute strokes - right temporal/frontal/parietal lobes. acute lacunar infarct right basal ganglia, body of the caudate nucleus. Acute brainstem infarct left pontomesencephalic junction. allergic to aspirin. no plavix or DOAC due to hx hemorrhagic stroke. continue PT/OT/ST. pt is more alert and talkative today. Echo with negative bubble study, EF 65%, RVSP 40 mmHg 2. Atrial fibrillation-cannot have anticoagulation due to history of hemorrhagic stroke. Rate is controlled. Will maintain on telemetry. continue verapimil, coreg. 3. History of Parkinson's - continue carbidopa, levodopa 4. Type 2 diabetes with morbid obesity -A1C 8.2. Continue SSI and continue to hold amaryl. 5. Suspected CKD stage III-Baseline unclear, will trend BMP. 6. Macrocytic anemia - folate normal, b12 elevated. 7. Debility - needs SNF placement. significant generalized weakness. DVT prophylaxis: Lovenox Discharge planning: SNF. F/u with neuro 2 weeks. This patient was seen by Mahendra Rivers PA-C under the supervision of Doctor Ilia <Phillip Morillo - Last Filed: 05/21/20 14:13> Vitals/I&O's: Vital Signs Temp Pulse Resp BP Pulse Ox 98.7 F 97 18 160/100 H 96 05/21/20 08:50 05/21/20 08:50 05/21/20 08:50 05/21/20 08:50 05/21/20 08:50 Oxygen Flow Rate (L/min) 2 Oxygen Delivery Method Nasal Cannula Weight: 126.552 kg Body Mass Index (BMI) 51.0 Finger Stick Blood Glucose 170 Intake and Output for Last 24 Hours 05/19/20 05/20/20 05/21/20 23:59 23:59 23:59 Intake Total 1300 / 1300 520 / 640 420 / 420 Output Total 1700 / 1700 850 / 950 100 / 100 Balance -400 / -400 -330 / -310 320 / 320 Laboratory Results 05/19/20 05:45: Vitamin B12 > 2000 H 05/20/20 16:08: POC Glucose 141 H 05/20/20 22:35: POC Glucose 145 H 05/21/20 06:56: POC Glucose 153 H 05/21/20 10:22: COVID-19 (JAYME) Not Detected 05/21/20 11:01: POC Glucose 212 H Current Medications Acetaminophen (Acetaminophen 650 Mg Suppository) 650 mg RECTAL Q4H PRN PRN PRN Reason: pain 1-10, fever Last Admin: 05/20/20 03:25 Dose: 650 mg Documented by: Atorvastatin Calcium (Atorvastatin Calcium 80 Mg Tablet) 80 mg PO QHS [facility] Last Admin: 05/20/20 22:32 Dose: 80 mg Documented by: Carbidopa/Levodopa (Carbidopa/Levodopa 25/250 Tablet) 1 tablet PO TIDAC [facility] Last Admin: 05/21/20 11:01 Dose: 1 tablet Documented by: Carvedilol (Carvedilol 12.5 Mg Tablet) 12.5 mg PO BIDCM [facility] Last Admin: 05/21/20 09:04 Dose: 12.5 mg Documented by: Enoxaparin Sodium (Enoxaparin 40 Mg/0.4 Ml Syringe) 40 mg SC DAILY@0600 [facility] Last Admin: 05/21/20 06:17 Dose: 40 mg Documented by: Furosemide (Furosemide 40 Mg Tablet) 40 mg PO DAILY [facility] Last Admin: 05/21/20 09:04 Dose: 40 mg Documented by: Haloperidol Lactate (Haloperidol Lactate 5 Mg/Ml Vial) 0.5 mg IV Q4H PRN PRN PRN Reason: AGITATION Last Admin: 05/20/20 05:36 Dose: 0.5 mg Documented by: Haloperidol Lactate (Haloperidol Lactate 5 Mg/Ml Vial) 0.5 mg IM Q4H PRN PRN PRN Reason: AGITATION Hydralazine HCl (Hydralazine 20 Mg/Ml Vial) 5 mg IV Q30M PRN PRN Reason: to maintain BP goals Insulin Human Lispro (Insulin Lispro 100 Unit/Ml Insuln.Pen) 0 unit SC [facility]; Protocol Last Admin: 05/21/20 11:01 Dose: 4 units Documented by: Labetalol HCl (Labetalol (Prefilled) 20 Mg/4 Ml) 10 - 20 mg IV Q10M PRN PRN PRN Reason: to Maintain BP Goals Sodium Chloride (0.9% Saline Lock 10 Ml Syringe) 10 - 40 ml IV UD PRN PRN Reason: SALINE FLUSH Last Admin: 05/20/20 05:36 Dose: 10 ml Documented by: Venlafaxine HCl (Venlafaxine Xr 75 Mg Capsule) 225 mg PO DAILY [facility] Last Admin: 05/21/20 09:05 Dose: 225 mg Documented by: Verapamil HCl (Verapamil Sr 240 Mg Tablet) 240 mg PO DAILY [facility] Last Admin: 05/21/20 09:05 Dose: 240 mg Documented by: Assessment/Plan This patient was seen in conjunction with Mahendra Rivers PA-C . I have independently interviewed and examined the patient and reviewed pertinent historical, laboratory, and other data. Please refer to Mahendra Rivers PA-C note for details of this patient's presentation, findings, and recommendations. I have reviewed Mahendra Rivers PA-C note and concur with documented findings. In brief, patient 70-year-old lady with history of paroxysmal A. fib not on systemic anticoagulation due to history of hemorrhagic stroke presented with left facial droop and slurred speech. An assessment of acute multiple ischemic strokes involving the right temporal/frontal/parietal lobes/lacunar infarct involving the right basal ganglia and body of the caudate nucleus and left brainstem infarct at the pontomesencephalic junction made admitted to a monitored bed for further management Physical Examination: GENERAL: No distress HEENT: Atraumatic; EYES; Anicteric, Normal Conjunctiva NECK; supple, normal thyroid, RESPIRATORY: Diminished to auscultation PSYCH; Flat affect Assessment 1. Acute multiple embolic stroke 2. Chronic A. fib 3. History of hemorrhagic stroke 4. Parkinson's disease 5. Morbid obesity with BMI of 51 6. Diabetes mellitus type 2 7. Anemia of chronic disorder 8. Physical debility 9. DVT prophylaxis Recommendations: 1. I have discussed the results of my overview and impressions with the patient 2. Options for management were reviewed Advance planning; did discuss with the patient's family regarding advanced directives as well as CODE STATUS. Did explain the various scenarios involved ( FULL CODE, DNR CCA, DNR CCA with no intubation, and DNR CC and what each meant), elected for patient to be full code with CPR and intubation if warranted. Order was placed. Time spent on discussion 18 minutes. Inpatient E&M: 25965 Subs Hosp L2 Procedures: 67411 Advncd Care Plan 30 Min
[2020-05-21 14:30] LABS: Hemoglobin 11.1 g/dL (12.0-15.0); Mean Corp Hgb Conc 31.7 g/dL (32-36); Mean Corpuscular Hgb 30.7 pg (27.0-32.0); Mean Platelet Vol. 8.9 fl (6.2-12.0); Platelet Count 204 K/mm3 (150-450); RBC Distribution Width CV 14.9 % (11.6-14.6); RBC Distribution Width SD 52.7 fl (35.1-43.9); Red Blood Count 3.61 M/mm3 (4.2-5.4); White Blood Count 9.5 K/mm3 (4.4-11.0)
[2020-05-21 14:47] LABS: Anion Gap 8 (5-15); BUN 18 mg/dL (7-18); BUN/Creat Ratio 18.4 RATIO (10-20); Calcium,Total 8.5 mg/dL (8.5-10.1); Chloride 100 mmol/L (98-107); Creatinine, Serum 0.98 mg/dL (0.55-1.02); EST Glomerular Filtration Rate 60 mL/min (>60); Est Glom Filt Rate - Afr Amer 73 mL/min (>60); Estimated Creatinine Clearance 43.45 ml/min; Glucose 142 mg/dL (74-106); Magnesium 1.9 mg/dL (1.6-2.6); Potassium 3.8 mmol/L (3.5-5.1); Sodium Level 134 mmol/L (136-145)
--- NOTE | 2020-05-21 15:44 | CHAPLAIN ---
Type of Pastoral Visit _x__ Initial Visit ___ Follow-up Visit ___ On-call Visit ___ General Patient Visit ___ Spiritual Assessment ___ Family Conference ___ Bereavement ___ Rapid Response ___ Code Blue ___ Other (describe below) Pastoral Care Referral From _x__ Patient ___ Family ___ Nurse ___ Physician ___ Examination Proctor ___ Wire Preparation Worker ___ Other (describe below) Sacrament/Intervention _x__ Active listening ___ Anointing ___ Taoist ___ Bereavement ___ Communion ___ Lesli exploration ___ ___ Life review _x__ Prayer ___ Reconciliation ___ Sacrament of Sick _x__ Supportive presence ___ Wedding ___ Other (describe below) Pastoral Comments
[2020-05-21 16:20] LABS: Bedside Glucose 211 mg/dL (70-110)
--- NOTE | 2020-05-21 17:15 | CASEMGMT ---
Social Work PCU Collaboration with RN ROMAINE Martínez. Referral to [facility] has been made and precert started. Met with patient in room to complete PHQ9 screening in conjunction with diagnosis of CVA. Introduced to self and role. Patient appearing distracted as evidenced by looking out the window and only fair eye contact. However, the patient answered questions appropriately and on task to subject asked. Patient gave expansive answers intermittently. Patient shares she is on an antidepressant at this time, and has been adhering to regiment. Denies any history of counseling and states to talk to my sisters for counseling and support. Patient does endorse symptoms of depression, and described a depressed mood exacerbated by diagnosis of Parkinson disease, as well as loss of driving privileges related to said diagnosis. Patient reports it has been hard to lose independence such as being able to go out to the store or to help transport grandkids to school. Patient lives with family, who patient reports to be helpful, and reports to feel safe living with family. Patient admits she has lost interset in watching television, and has a hard time crocheting now due to the Parkinson. Patient reports she is still able to make her own meals and still eats regular meals. Patient admits has wondered why didn't when had the stroke, due to having so many medical issues, though denied any thoughts/ideation/planning for suicide when asked. Denies any past action related to suicide. Patient clearly stated no when asked if thoughts of suicide have been present in the last couple of weeks. Patient reports has never thought of taking own life and states I'm not that kind of person. Patient reflective on life, family, worry about family members who have substance use issues, and even loss of 2 youngest sisters to MS last year. Supportive listening provided. Patient reports willingness to go to TCU for more rehab. Educated that social work remains available for support as indicated or desired, encouraged continued adherence to anti depressants, as well as encouraged consideration of counseling for a more supportive role in patient's life. PHQ9 score of 16, see attached link for details. Plan: Referral to TCU has been initiated. Will give handoff to TCU social science professor related to PHQ9 results and benefit of following up with patient at a later time regarding depressive symptoms and openness for referrals to ongoing supportive services. -LIZETTE Dubon, FACULTY DEAN
--- NOTE | 2020-05-21 17:32 | PCA ---
Karen from [facility] called and stated that they received precert and patient is okay to send.
[2020-05-21] MEDS: Atorvastatin Calcium 80 MG Tablet PO (22:23)
[2020-05-21] MEDS: Carvedilol 6.25 MG Tablet PO (22:27)
[2020-05-21 22:36] LABS: Bedside Glucose 146 mg/dL (70-110)
[2020-05-22 03:00] VITALS: PULSE 86
[2020-05-22 03:15] VITALS: BP 157/80; PULSE 86; RESP 19; TEMP 37; O2SAT 95
[2020-05-22] MEDS: Carbidopa/Levodopa 25/250 Tablet PO (06:43)
[2020-05-22] MEDS: Enoxaparin 40 MG/0.4 ML Syringe SC (06:43)
[2020-05-22 06:49] LABS: Hematocrit 37.1 % (37-47); Hemoglobin 11.6 g/dL (12.0-15.0); Mean Corp Hgb Conc 31.3 g/dL (32-36); Mean Corpuscular Hgb 30.3 pg (27.0-32.0); Mean Corpuscular Volume 96.9 fL (81-99); Mean Platelet Vol. 9.6 fl (6.2-12.0); Platelet Count 196 K/mm3 (150-450); RBC Distribution Width CV 15.1 % (11.6-14.6); Red Blood Count 3.83 M/mm3 (4.2-5.4)
[2020-05-22 06:51] LABS: Bedside Glucose 146 mg/dL (70-110)
[2020-05-22 07:00] VITALS: PULSE 98
[2020-05-22 07:20] LABS: Anion Gap 4 (5-15); BUN 20 mg/dL (7-18); BUN/Creat Ratio 18.9 RATIO (10-20); Calcium,Total 8.6 mg/dL (8.5-10.1); Chloride 102 mmol/L (98-107); Creatinine, Serum 1.06 mg/dL (0.55-1.02); EST Glomerular Filtration Rate 55 mL/min (>60); Est Glom Filt Rate - Afr Amer 66 mL/min (>60); Estimated Creatinine Clearance 40.17 ml/min; Glucose 142 mg/dL (74-106); Potassium 4.5 mmol/L (3.5-5.1); Sodium Level 135 mmol/L (136-145)
[2020-05-22 07:42] VITALS: O2SAT 97
[2020-05-22 09:05] VITALS: BP 107/66; PULSE 93; RESP 18; TEMP 36.9; O2SAT 96
[2020-05-22] MEDS: Furosemide 40 MG Tablet PO (09:11)
[2020-05-22] MEDS: Venlafaxine XR 75 MG Capsule 225 MG PO (09:11)
[2020-05-22] MEDS: Carvedilol 6.25 MG Tablet PO (09:11)
[2020-05-22] MEDS: Verapamil SR 240 MG Tablet PO (09:11)
--- NOTE | 2020-05-22 09:13 | CASEMGMT ---
Addendum entered by Bronwyn Johnson 05/22/20 10:53: RN CM spoke with daughter regarding d/c to TCU today. Bronwyn PATEL Original Note: SW copied orders. Patient is ready for discharge to [facility]CU. SW will also make sure patient's daughter is aware she is being d/c to TCU today. Plan: d/c to [facility]CU under skilled level of care. Bronwyn PATEL
[2020-05-22 09:59] VITALS: BP 107/66; PULSE 93; RESP 18; TEMP 36.9; O2SAT 96
--- NOTE | 2020-05-22 10:06 | NURSING ---
Attempted to call report for pt transfer to TCU. Nurse unavailable, awaiting return phone call.
--- NOTE | 2020-05-22 10:16 | NURSING ---
Report called to nurse Henson for pt transfer to TCU.
--- NOTE | 2020-05-22 10:22 | CASEMGMT ---
This RN CM to room to update pt/daughter on precert obtained for TCU later last pm and that pt will be transferred at this time, voice understanding. Daughter aware that she can bring clothing, brush, and toothbrush for pt to front end developer in a bag and labeled with pt name/TCU and they will get up to pt at that time, voices understanding. Pt/daughter voice no further questions/concerns/needs at this time. SStaten ZAC CM
--- NOTE | 2020-05-22 14:19 | DS.PCM_ITS ---
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 CT/CTA Head AND Neck W/ Contrast IMPRESSION: Calcified plaques at the origin of the right internal carotid artery causing less than 50% narrowing. Calcified plaques at the level of the origin of the left internal carotid artery causing between 50 and 69% stenosis. RAD/Chest 1 View IMPRESSION: Cardiomegaly and vascular congestion. MRI/Brain without Contrast IMPRESSION: Acute ischemic changes in the right temporal frontal and parietal lobes. Acute lacunar infarct in right basal ganglia and body of the caudate nucleus. Acute brainstem infarct at the left pontomesencephalic junction. 2D TTE: Left ventricular systolic function is normal. The estimated ejection fraction is 65 %. The left atrium is mildly enlarged. The right atrium is mildly enlarged. There is moderate mitral annular calcification. Extension of the mitral annular calcification onto the base of the posterior mitral valve leaflet. Trivial mitral valve insufficiency. Trivial tricuspid valve insufficiency. Mild diffuse aortic valve thickening. Mild focal aortic valve calcification. Right ventricular systolic pressure estimated to be 40 mmHg. Unable to assess diastolic dysfunction. Bubble contrast study negative for right to left interatrial shunt. Consults: SOC - neurology Operations: None Procedures: 2-D Echocardiogram Summary of Care Provided: Hospital Course: The patient is a 70 year old F with pmhx of hemorrhagic stroke, chronic afib, parkinsons, who presented to the ER with altered mental status and new left facial droop and aphasia. She was brought to the ER and CT brain showed MCA infarct. She was admitted to the PCU. She has chronic afib and cannot have oral anticoagulation or plavix due to hx of hemorrhagic stroke. She was given aspirin and statin. She had an MRI of the brain showing multiple strokes including right temporal frontal, parietal lobes, lacunar infarct of the right basal ganglia and body of the caudate nucleus, and a brainstem infarct at the left pontomesencephalic junction. CTA head and neck was obtained. Her aphasia improved to near baseline. She had some dysphagia and speech therapy modified her diet and provided therapy. She had severe generalized weakness and SNF was recommended. She was discharged to SNF in stable condition and will need follow up with her PCP in 2 weeks, and neurology in 2 weeks. This patient was seen by Mahendra Rivers PA-C under the supervision of Dr. Morillo ] Patient Problems: Active and Suspected Problems CVA (cerebral vascular accident) (Acute) - Physical Exam Vitals/I&O's: Vital Signs Temp Pulse Resp BP Pulse Ox 98.4 F 93 18 107/66 96 05/22/20 09:59 05/22/20 09:59 05/22/20 09:59 05/22/20 09:59 05/22/20 09:59 Oxygen Flow Rate (L/min) 2.5 Oxygen Delivery Method Nasal Cannula Weight: 278 lb 15.99 oz Body Mass Index (BMI) 51.0 Finger Stick Blood Glucose 170 Intake and Output for Last 24 Hours 05/20/20 05/21/20 05/22/20 23:59 23:59 23:59 Intake Total 520 / 640 880 / 880 Output Total 850 / 950 100 / 100 Balance -330 / -310 780 / 780 General: Alert, Oriented x3, Cooperative HEENT: Atraumatic, PERRLA, EOMI, Normocephalic Neck: Supple, No JVD, Negative Carotid Bruits Lungs: Clear to auscultation, Normal air movement Cardiovascular: Regular rate, No murmurs Abdomen: Bowel Sounds Present, Soft, Non Tender Extremities: No edema, Capillary Refill Less than 3 Seconds Skin: No rashes, No breakdown Musculoskeletal: No Tenderness to Palpation of Joints or Extremities Neurological: Cranial nerves II-XII grossly intact Psych/Mental Status: Normal Affect, Appropriate, Alert and oriented to time, place, person, mood and affect Laboratory Results 05/21/20 14:24: WBC 9.5, RBC 3.61 L, Hgb 11.1 L, Hct 35.0 L, MCV 97.0, MCH 30.7, MCHC 31.7 L, RDW Std Deviation 52.7 H, RDW Coeff of Ever 14.9 H, Plt Count 204, MPV 8.9 05/21/20 14:24: Sodium 134 L, Potassium 3.8, Chloride 100, Carbon Dioxide 26.0, Anion Gap 8, BUN 18, Creatinine 0.98, Estim Creat Clear Calc 43.45, Est GFR (MDRD) Af Amer 73, Est GFR (MDRD) Non-Af 60, BUN/Creatinine Ratio 18.4, Glucose 142 H, Calcium 8.5, Magnesium 1.9 05/21/20 16:05: POC Glucose 211 H 05/21/20 22:21: POC Glucose 146 H 05/22/20 06:05: WBC 8.0, RBC 3.83 L, Hgb 11.6 L, Hct 37.1, MCV 96.9, MCH 30.3, MCHC 31.3 L, RDW Std Deviation 53.0 H, RDW Coeff of Ever 15.1 H, Plt Count 196, MPV 9.6 05/22/20 06:05: Sodium 135 L, Potassium 4.5, Chloride 102, Carbon Dioxide 29.0, Anion Gap 4 L, BUN 20 H, Creatinine 1.06 H, Estim Creat Clear Calc 40.17, Est GFR (MDRD) Af Amer 66, Est GFR (MDRD) Non-Af 55 L, BUN/Creatinine Ratio 18.9, Glucose 142 H, Calcium 8.6 05/22/20 06:42: POC Glucose 146 H Discharge Diet: Low fat/ Low Cholesterol, 1800 Calorie Control Diet, 2000 mg So dium Diet Discharge Activity: Return to Normal Activity Home Medications: Medications to take at Discharge Carbidopa/Levodopa [Carbidopa-Levodopa 25-250 Tab] 1 ea PO TID 05/18/20 Cyanocobalamin (Vitamin B-12) [Vitamin B-12] 1,000 mcg PO DAILY 05/18/20 Furosemide [Lasix] 40 mg PO DAILY 05/18/20 Glimepiride [Amaryl] 2 mg PO DAILY 05/18/20 Magnesium Oxide [Magnesium] 400 mg PO BID 05/18/20 Multivitamins,Therapeutic [Multivitamin] 1 tab PO DAILY 05/18/20 Venlafaxine HCl [Effexor Xr] 75 mg PO QHS 05/18/20 Venlafaxine HCl [Effexor] 150 mg PO BREAKFAST 05/18/20 Verapamil HCl [Verapamil ER] 240 mg PO DAILY 05/18/20 Acetaminophen [Tylenol Suppository] 650 mg RECTAL Q4H PRN PRN suppos. 05/21/20 Atorvastatin Calcium [Lipitor] 80 mg PO QHS 05/22/20 Carvedilol [Coreg (Beta Giovanni)] 6.25 mg PO BID 05/22/20 Primary Care Physician: Care Physician,No Primary [NON-STAFF] - Please follow up with your Primary Care Physician in: 2 weeks Please Follow Up With: Chivo Vivar MD When: 2 weeks Disposition: Custodial facility Minutes spent on discharge:: 35 Patient Condition:: Stable Medical Necessity - Tobacco Use Smoking Status: Never smoker Tobacco Use: Non-smoker Meaningful Use Info Meaningful Use Diagnoses (Choose all that apply): Ischemic CVA - CVA Therapy Assessed for PT,OT and/or ST?: Yes - Ischemic Stroke Antithrombotic order at d/c?: Yes Dx of Atrial fib/flutter?: Yes Anticoagulant at discharge?: No Reason anticoagulant not ordered: Medical Contraindication Statins at discharge?: Yes Primary Dx Acute Ischemic CVA?: Yes IV tPA ordered during stay?: No Reason IV t-PA not ordered: Medical Contraindication <Phillip Morillo - Last Filed: 05/22/20 15:19> Discharge Date and Diagnosis - Primary Discharge Diagnosis Acute Problems: Active Problems CVA (cerebral vascular accident) (Acute) - Secondary Discharge Diagnosis Chronic Problems: Chronic Problems Dysphagia (Chronic) Parkinson disease (Chronic) Chronic respiratory failure with hypoxia, on home O2 therapy (Chronic) Afib (Chronic) Morbid obesity (Chronic) Diabetes (Chronic) Hospital Course and Treatment Summary of Care Provided: This patient was seen in conjunction with Mahendra Rivers PA-C . I have independently interviewed and examined the patient and reviewed pertinent historical, laboratory, and other data. Please refer to Mahendra Rivers PA-C note for details of this patient's presentation, findings, and recommendations. I have reviewed Mahendra Rivers PA-C note and concur with documented findings. In brief, patient 70-year-old lady with history of paroxysmal A. fib not on systemic anticoagulation due to history of hemorrhagic stroke presented with left facial droop and slurred speech. An assessment of acute multiple ischemic strokes involving the right temporal/frontal/parietal lobes/lacunar infarct i nvolving the right basal ganglia and body of the caudate nucleus and left brainstem infarct at the pontomesencephalic junction made admitted to a monitored bed for further management Physical Examination: GENERAL: No distress HEENT: Atraumatic; EYES; Anicteric, Normal Conjunctiva NECK; supple, normal thyroid, RESPIRATORY: Diminished to auscultation PSYCH; Flat affect Assessment 1. Acute multiple embolic stroke 2. Chronic A. fib 3. History of hemorrhagic stroke 4. Parkinson's disease 5. Morbid obesity with BMI of 51 6. Diabetes mellitus type 2 7. Anemia of chronic disorder 8. Physical debility 9. DVT prophylaxis Hospital Course ; as dictated above - Physical Exam Vitals/I&O's: Vital Signs Temp Pulse Resp BP Pulse Ox 98.4 F 93 18 107/66 96 05/22/20 09:59 05/22/20 09:59 05/22/20 09:59 05/22/20 09:59 05/22/20 09:59 Oxygen Flow Rate (L/min) 2.5 Oxygen Delivery Method Nasal Cannula Weight: 126.552 kg Body Mass Index (BMI) 51.0 Finger Stick Blood Glucose 170 Intake and Output for Last 24 Hours 05/20/20 05/21/20 05/22/20 23:59 23:59 23:59 Intake Total 520 / 640 880 / 880 Output Total 850 / 950 100 / 100 Balance -330 / -310 780 / 780 Laboratory Results 05/21/20 16:05: POC Glucose 211 H 05/21/20 22:21: POC Glucose 146 H 05/22/20 06:05: WBC 8.0, RBC 3.83 L, Hgb 11.6 L, Hct 37.1, MCV 96.9, MCH 30.3, MCHC 31.3 L, RDW Std Deviation 53.0 H, RDW Coeff of Ever 15.1 H, Plt Count 196, MPV 9.6 05/22/20 06:05: Sodium 135 L, Potassium 4.5, Chloride 102, Carbon Dioxide 29.0, Anion Gap 4 L, BUN 20 H, Creatinine 1.06 H, Estim Creat Clear Calc 40.17, Est GFR (MDRD) Af Amer 66, Est GFR (MDRD) Non-Af 55 L, BUN/Creatinine Ratio 18.9, Glucose 142 H, Calcium 8.6 05/22/20 06:42: POC Glucose 146 H Inpatient E&M: 69102 Disch Hosp
--- NOTE | 2020-05-23 18:20 | CASEMGMT ---
Social Work Handoff to TCU healthcare social worker regarding PHQ9 results while on the acute floor and follow up with patient prior to discharging from TCU. -LIZETTE Dubon, MALWARE ANALYST
== END 2020-05-22 11:37 | disposition skilled nursing facility (03) | DRG 65 ==
LOC: ED 12:06 → PCU 12:54
PROVIDERS: Physician Assistant; Admitting Provider Internal Medicine; Emergency Provider Emergency Medicine; PCP Family Medicine; Visit Provider Internal Medicine
DX: I63.411 Cerebral infarction due to embolism of right middle cerebral artery (principal); Z68.43 Body mass index [BMI] 50.0-59.9, adult; J96.11 Chronic respiratory failure with hypoxia; G83.24 Monoplegia of upper limb affecting left nondominant side; R29.810 Facial weakness; R47.01 Aphasia; R29.708 NIHSS score 8; I48.0 Paroxysmal atrial fibrillation; I12.9 Hypertensive chronic kidney disease with stage 1 through stage 4 chronic kidney disease, or unspecified chronic kidney disease; E11.22 Type 2 diabetes mellitus with diabetic chronic kidney disease; N18.30 Chronic kidney disease, stage 3 unspecified; D63.8 Anemia in other chronic diseases classified elsewhere; I27.20 Pulmonary hypertension, unspecified; G20 Parkinson's disease; R13.10 Dysphagia, unspecified; G47.33 Obstructive sleep apnea (adult) (pediatric); E66.01 Morbid (severe) obesity due to excess calories; Z23 Encounter for immunization; Z91.19 Patient's noncompliance with other medical treatment and regimen; Z79.84 Long term (current) use of oral hypoglycemic drugs; Z79.899 Other long term (current) drug therapy; Z86.73 Personal history of transient ischemic attack (TIA), and cerebral infarction without residual deficits
CPT/HCPCS: 36415; 70450; 70496; 70498; 70551; 71045; 80048; 80061; 82607; 82746; 82962; 83036; 83735; 84484; 85025; 85027; 85610; 85730; 87635; 92526; 92610; 93005; 93306; 94760; 94762; 97110; 97116; 97163; 97167; 97530; 97535; 97802; 99284; 99285; G0008; J7030; Q9957; Q9967; 90686; A4216; C8929; U0003

== ENCOUNTER 2020-05-22 11:45 | Inpatient (IN) | payer MEDICARE, SELFPAY ==
[2020-05-21 21:50] VITALS: BMI 51.0
[2020-05-22 11:51] VITALS: BP 148/90; PULSE 80; RESP 16; TEMP 36.4; O2SAT 95; BMI 47.1
[2020-05-22 14:13] VITALS: RESP 18
--- NOTE | 2020-05-22 14:44 | CASEMGMT ---
Social Work Discussed code status with pt. Pt requesting DNR-CCA, no intubation. Nursing notified. MOLST form reviewed and placed in chart. Heaven Subramanian, PROFESSOR OF ART HISTORY ELECTROSTATIC POWDER COATING TECHNICIAN
[2020-05-22] MEDS: Carbidopa/Levodopa 25/250 Tablet PO ×2 (14:58→21:56)
[2020-05-22 17:45] VITALS: O2SAT 96
[2020-05-22] MEDS: Magnesium Chloride 64 MG Delay Rel.Tablet PO (17:51)
[2020-05-22] MEDS: Carvedilol 6.25 MG Tablet PO (17:52)
--- NOTE | 2020-05-22 19:56 | PCM.HP.STD ---
Problem List (1) Debility Status: Acute (2) Carotid artery stenosis Status: Chronic (3) Hyperlipidemia Status: Chronic (4) Vitamin B12 deficiency Status: Chronic (5) Edema Status: Chronic (6) Hypomagnesemia Status: Chronic (7) Depression Status: Chronic (8) Parkinson disease Status: Chronic (9) CVA (cerebral vascular accident) Status: Acute (10) Hemorrhagic stroke Status: Chronic (11) Afib Status: Chronic (12) Diabetes Status: Chronic (13) Body mass index (BMI) greater than 70 in adult Status: Chronic History of Present Illness Date of Admission: 05/22/20 Chief Complaint: Here for rehabilitation, strengthening, prior to discharge home with family. She lives with daughter, grandchildren. 05/18/20 The patient is a 70 year old Female with below past medical history presented to [facility] Emergency Department with decreased level of consciousness. 05/18/20 CT brain right middle cerebral artery stroke. 05/18/20 CTA head, neck, right ICA < 50% stenosis, left ICA 50 to 69% stenosis. 05/18/20 Chest X-ray cardiomegaly, mild vascular congestion. 05/18/20 MRI brain right temporal frontal, parietal stroke. Right basal ganglia, caudate nucleus stroke. Left brainstem stroke. 05/18/20 EKG shows atrial fibrillation with right bundle branch block. Fell in bath tub at 4AM, positive for loss of consciousness. Discharged home from outside ER. Left facial droop, dysarthria. Stroke team recommended NO TPA. Patient has history of hemorrhagic stroke while taking Eliquis. 05/18/20 Admit to Hospital. History of hemorrhagic stroke. PT/OT/ST, Echo, Aspirin, statin for stroke. SSI for Diabetes instead of sulfonylurea. 05/18/20 Echo left ventricular systolic function normal. EF 65%. Right ventricular systolic pressure 40mm HG. Negative bubble study for right to left shunt. 05/19/20 No anticoagulation for atrial fibrillation due to hemorrhagic stroke on eliquis. 05/20/20 Allergic to Aspirin, no Plavix, no DOAC due to hemorrhagic stroke. PT/OT recommended retirement facility. 05/22/20 Admit to TCU with debility, here for rehabilitation, strengthening, prior to discharge home with family. Past Medical History Past Medical History (Chronic Problems): Chronic Problems Dysphagia (Chronic) Parkinson disease (Chronic) Carotid artery stenosis (Chronic) Hyperlipidemia (Chronic) Vitamin B12 deficiency (Chronic) Edema (Chronic) Hypomagnesemia (Chronic) Depression (Chronic) Body mass index (BMI) greater than 70 in adult (Chronic) Chronic respiratory failure with hypoxia, on home O2 therapy (Chronic) Hemorrhagic stroke (Chronic) Afib (Chronic) Morbid obesity (Chronic) Diabetes (Chronic) Allergies aspirin Allergy (Verified 05/18/20 23:52) Hives Penicillins Allergy (Verified 05/18/20 12:14) PT UNABLE TO RESPOND-NEEDS F/U Home Medications: Ambulatory Orders Medication Instructions Recorded Carbidopa/Levodopa 1 ea PO TID 05/18/20 [Carbidopa-Levodopa 25-250 Tab] Cyanocobalamin (Vitamin B-12) 1,000 mcg PO DAILY 05/18/20 [Vitamin B-12] Furosemide [Lasix] 40 mg PO DAILY 05/18/20 Glimepiride [Amaryl] 2 mg PO DAILY 05/18/20 Magnesium Oxide [Magnesium] 400 mg PO BID 05/18/20 Multivitamins,Therapeutic 1 tab PO DAILY 05/18/20 [Multivitamin] Venlafaxine HCl [Effexor Xr] 75 mg PO QHS 05/18/20 Venlafaxine HCl [Effexor] 150 mg PO BREAKFAST 05/18/20 Verapamil HCl [Verapamil ER] 240 mg PO DAILY 05/18/20 Acetaminophen [Tylenol Suppository] 650 mg RECTAL Q4H PRN PRN suppos. 05/21/20 Atorvastatin Calcium [Lipitor] 80 mg PO QHS 05/22/20 Carvedilol [Coreg (Beta Giovanni)] 6.25 mg PO BID 05/22/20 Surgical History: no surgical history Psychiatric History: Depression DIGITAL FORENSICS EXAMINER History: No pertinent DIGITAL FORENSICS EXAMINER history Lives: With Family - Daughter, grand children. Smoking Status: Never smoker Tobacco Use: Secondhand Alcohol: None Drugs: None - *Family History Maternal History Items: No pertinent history Paternal History Items: No pertinent history Review of Systems Constitutional: Denies: Chills, Fever, Weight Change HEENT: Denies: Head Aches, Sinus Congestion, Sinus Drainage Cardiovascular: Denies: Chest Pain, Palpitations Respiratory: Denies: Cough, Shortness of breath at rest, Sputum production Gastrointestinal: Denies: Abdominal Pain, Nausea, Vomiting Genitourinary: Denies: Dysuria Musculoskeletal: Denies: Joint Pain, Joint Tenderness Skin: Denies: Rash, Wounds Neurological: Denies: Numbness, Tingling, Focal weakness Psychiatric: Denies: Anxiety, Depression, Homicidal Ideations, Suicidal Ideations Hematologic/ Lymphatic: Denies: Easy Bruising, Easy Bleeding VTE Information - Inpt Only VTE Present on Admission: No VTE Mechan Device Prophylaxis: Knee High JESSICA Hose VTE Pharm Prophylaxis ordered?: No Reason prophylaxis not ordered:: Medical Contraindication Patient Problems: Active and Suspected Problems Debility (Acute) CVA (cerebral vascular accident) (Acute) - Physical Exam Vitals/I&O's: Vital Signs Temp Pulse Resp BP Pulse Ox 97.6 F L 80 18 148/90 H 96 05/22/20 11:51 05/22/20 11:51 05/22/20 14:13 05/22/20 11:51 05/22/20 17:45 Oxygen Flow Rate (L/min) 3 Oxygen Delivery Method Nasal Cannula Weight: 75.325 kg Body Mass Index (BMI) 29.4 Finger Stick Blood Glucose 170 Intake and Output for Last 24 Hours 05/20/20 05/21/20 05/22/20 23:59 23:59 23:59 Intake Total 480 / 480 Balance 480 / 480 General: Alert, Oriented x3, Cooperative HEENT: Atraumatic, PERRLA, EOMI, Normocephalic Neck: Supple, No JVD, Negative Carotid Bruits Lungs: Clear to auscultation, Normal air movement Cardiovascular: Regular rate, No murmurs Abdomen: Bowel Sounds Present, Soft, Non Tender Extremities: No edema, Capillary Refill Less than 3 Seconds Skin: No rashes, No breakdown Musculoskeletal: No Tenderness to Palpation of Joints or Extremities Neurological: Cranial nerves II-XII grossly intact Psych/Mental Status: Normal Affect, Appropriate Laboratory Results 05/22/20 12:10: COVID-19 (JAYME) Pending Current Medications Acetaminophen (Acetaminophen 650 Mg Suppository) 650 mg RECTAL Q4H PRN PRN PRN Reason: pain 1-10, fever Atorvastatin Calcium (Atorvastatin Calcium 80 Mg Tablet) 80 mg PO QHS [facility]ANTAL Bisacodyl (Bisacodyl 10 Mg Suppository) 10 mg RECTAL DAILY PRN PRN Reason: Constipation Calamine/Phenol (Menthol/Lanolin/Calamine/Znox 113 Gm Tube) 1 applic TOPICAL 0600,2200 [facility]; Protocol Carbidopa/Levodopa (Carbidopa/Levodopa 25/250 Tablet) 1 tablet PO TID [facility] Last Admin: 05/22/20 14:58 Dose: 1 tablet Documented by: Carvedilol (Carvedilol 6.25 Mg Tablet) 6.25 mg PO BID [facility] Last Admin: 05/22/20 17:52 Dose: 6.25 mg Documented by: Cyanocobalamin (Cyanocobalamin 500 Mcg Tablet) [facility] Furosemide (Furosemide 40 Mg Tablet) 40 mg PO DAILY [facility] Glimepiride (Glimepiride 2 Mg Tablet) [facility] Magnesium Chloride (Magnesium Chloride 64 Mg Delay Rel.Tablet) [facility] Last Admin: 05/22/20 17:51 Dose: 64 mg Documented by: Menthol (Menthol 60gm Tube) 1 applic TOPICAL 4X/DAY PRN PRN PRN Reason: Pain Score 1-10 (SHOULDERS) Multivitamins (Multivitamins,Therapeutic Tablet) [facility] Nystatin (Nystatin Powder 15gm Bottle) 1 applic TOPICAL 0600,2200 [facility]; Protocol Tuberculin PPD (Tuberculin,Purif.Prot.Deriv. 50 Tu/Ml Vial) 5 tu ID X1 ONE Stop: 05/23/20 10:01 Tuberculin PPD (Tuberculin,Purif.Prot.Deriv. 50 Tu/Ml Vial) 5 tu ID X1 ONE Stop: 05/30/20 10:01 Venlafaxine HCl (Venlafaxine Hcl 75 Mg Tablet) 150 mg PO BREAKFAST [facility] Venlafaxine HCl (Venlafaxine Xr 75 Mg Capsule) 75 mg PO QHS [facility] Verapamil HCl (Verapamil Sr 240 Mg Tablet) 240 mg PO DAILY [facility] Assessment/Plan All Active Problems Debility (Acute) CVA (cerebral vascular accident) (Acute) TIA (transient ischemic attack) (Resolved) 70 year old female with below past medical history hospitalized for right MCA stroke, unable to give antiplatelet agents or anticoagulation due to history of hemorrhagic stroke, admitted to TCU with debility, here for rehabilitation, strengthening, prior to discharge home with family. Debility - PT/OT. Dysarthria - ST. Pain - Tylenol 1000MG Q6H PRN pain (1-10), Maynor Portillo topical 4x/day PRN shoulder pain. Bowel - Miralax 17GM daily, Senna/colace 1 tablet BID, MOM 30ML PO daily PRN, Dulcolax 10MG ME daily PRN. Adult immunization - Administer Prevnar 13, Pneumovax 23, Fluzone as appropriate. DVT prophylaxis - contraindicated. Stroke - consider outpatient neurology follow up, consider Hoffmann Hoffmann disease. Hyperlipidemia - Atorvastatin 80MG QHS. Parkinson Disease - Sinemet 25/250MG TID. Atrial Fibrillation - Coreg 6.25MG BID, Verapamil 240MG daily, anticoagulation contraindicated. Vitamin B12 deficiency - B12 1000MCG daily. Edema - Lasix 40MG daily. Diabetes Mellitus II - Glimepiride 2MG daily. Hypomagnesemia - Magnesium 64mg BIDCM. Skin irritation - Calmoseptine topical BID. Nutrition - MVI 1 tablet daily. Tinea Corporis - Nystatin powder BID. Depression - Venlafaxine 150MG QAM, 75MG QHS, stable chronic nursing home use, GDR not recommended.
[2020-05-22] MEDS: Menthol/Lanolin/Calamine/Znox 113 GM Tube 1 APPLIC TOPICAL (20:56)
[2020-05-22] MEDS: Nystatin Powder 15gm Bottle 1 APPLIC TOPICAL (20:57)
[2020-05-22] MEDS: Atorvastatin Calcium 80 MG Tablet PO (21:56)
[2020-05-22] MEDS: Venlafaxine XR 75 MG Capsule PO (21:56)
[2020-05-23] MEDS: Polyethylene Glycol 3350 17 GM PACKET PO (04:35)
[2020-05-23] MEDS: Acetaminophen 500 MG Tablet 1000 MG PO (04:36)
[2020-05-23] MEDS: Senna/Docusate Sodium 1 Tablet PO ×2 (04:37→17:52)
[2020-05-23] MEDS: Furosemide 40 MG Tablet PO (04:37)
[2020-05-23] MEDS: Verapamil SR 240 MG Tablet PO (04:37)
[2020-05-23] MEDS: Carbidopa/Levodopa 25/250 Tablet PO ×3 (04:37→22:39)
[2020-05-23] MEDS: Carvedilol 6.25 MG Tablet PO ×2 (04:37→17:49)
[2020-05-23] MEDS: Nystatin Powder 15gm Bottle 1 APPLIC TOPICAL ×2 (04:38→22:37)
[2020-05-23] MEDS: Menthol/Lanolin/Calamine/Znox 113 GM Tube 1 APPLIC TOPICAL ×2 (04:38→22:38)
[2020-05-23 04:42] VITALS: BP 155/88; PULSE 96; RESP 18; TEMP 36.5; O2SAT 92
[2020-05-23 05:46] LABS: Basophil# 0.03 X10^3/uL; Basophil% 0.3 % (0-1); Eosinophil# 0.21 X10^3/uL; Eosinophils% 2.3 % (0-5); Hemoglobin 11.5 g/dL (12.0-15.0); Lymphocyte % 11.1 % (19-41); Mean Corp Hgb Conc 31.1 g/dL (32-36); Mean Corpuscular Hgb 30.7 pg (27.0-32.0); Mean Corpuscular Volume 98.7 fL (81-99); Mean Platelet Vol. 8.9 fl (6.2-12.0); Monocyte# 0.75 X10^3/uL; Monocyte% 8.3 % (0-10); NRBC Flagged by Analyzer 0 % (0-5); Neutrophil # 6.99 X10^3/uL (2.7-7.7); Neutrophil % 77.7 % (47-70); Platelet Count 209 K/mm3 (150-450); RBC Distribution Width CV 15.1 % (11.6-14.6); RBC Distribution Width SD 54.4 fl (35.1-43.9); Red Blood Count 3.75 M/mm3 (4.2-5.4)
[2020-05-23 06:12] LABS: Anion Gap 7 (5-15); BUN 24 mg/dL (7-18); BUN/Creat Ratio 21.6 RATIO (10-20); Calcium,Total 8.5 mg/dL (8.5-10.1); Chloride 99 mmol/L (98-107); Creatinine, Serum 1.11 mg/dL (0.55-1.02); EST Glomerular Filtration Rate 52 mL/min (>60); Est Glom Filt Rate - Afr Amer 63 mL/min (>60); Estimated Creatinine Clearance 40.13 ml/min; Glucose 159 mg/dL (74-106); Sodium Level 136 mmol/L (136-145)
[2020-05-23 06:31] LABS: Bedside Glucose 191 mg/dL (70-110)
[2020-05-23 07:39] VITALS: O2SAT 92
[2020-05-23] MEDS: Magnesium Chloride 64 MG Delay Rel.Tablet PO ×2 (08:09→17:48)
[2020-05-23] MEDS: Multivitamins,Therapeutic Tablet 1 TABLET PO (08:10)
[2020-05-23] MEDS: Glimepiride 2 MG Tablet PO (08:10)
[2020-05-23] MEDS: Cyanocobalamin 500 MCG Tablet 1000 MCG PO (08:10)
[2020-05-23] MEDS: Venlafaxine HCl 75 MG Tablet 150 MG PO (08:10)
[2020-05-23] MEDS: Tuberculin,Purif.prot.deriv. 50 TU/ML Vial 5 ML ID (09:56)
[2020-05-23 10:00] VITALS: PULSE 55; RESP 20; O2SAT 96
[2020-05-23 13:49] VITALS: O2SAT 96
[2020-05-23 15:07] VITALS: BP 147/100; PULSE 89; RESP 15; TEMP 36.8; O2SAT 96
--- NOTE | 2020-05-23 15:16 | CHAPLAIN ---
Type of Pastoral Visit _x__ Initial Visit ___ Follow-up Visit ___ On-call Visit ___ General Patient Visit ___ Spiritual Assessment ___ Family Conference ___ Bereavement ___ Rapid Response ___ Code Blue ___ Other (describe below) Pastoral Care Referral From _x__ Patient ___ Family ___ Nurse ___ Physician ___ Analyst Microbiology Lab ___ Co Founder And Ceo ___ Other (describe below) Sacrament/Intervention ___ Active listening ___ Anointing ___ Jewish ___ Bereavement ___ Communion ___ Lesli exploration ___ ___ Life review ___ Prayer ___ Reconciliation ___ Sacrament of Sick ___ Supportive presence ___ Wedding _x__ Other (describe below) Pastoral Comments patient requested support when she was in PCU and this quick print operator met her then; today pt is resting in bed and declined a visit
--- NOTE | 2020-05-23 15:17 | CASEMGMT ---
Social Work Notified by nursing that pt continuously asking to go home. Spoke with pt. Pt expressed she misses her family too much, she wants to go home 'now'. Validated her feelings and hard times with visitor restrictions. Explained she is here to get therapy and get stronger and IDT needs some time to work with her to do that. Pt stated I don't care I want to go home now. Explained we cannot keep pt here and she could leave AMA, but would not recommend that as she needs a higher level of assistance than prior. Pt reiterated I miss my grandchildren. SW provided emotional and verbal support. Offered for pt to be the best grandma and be able to play with her grandkids, she needs to get stronger to do that and staying here to get therapy is her best option. Pt agreed and reluctantly agreed to continue with therapy and remain. Offered to assist with Face Timing family as well. Attempted to Face Time with dtr at that time but she did not answer. Pt is able to call family herself on phone. SW to continue to follow. Heaven Subramanian, COOKING INSTRUCTOR COCKTAIL LOUNGE MANAGER
[2020-05-23] MEDS: Atorvastatin Calcium 80 MG Tablet PO (22:38)
[2020-05-23] MEDS: Venlafaxine XR 75 MG Capsule PO (22:39)
[2020-05-24 05:32] VITALS: BP 158/80; PULSE 90; RESP 16; TEMP 36.9; O2SAT 96
[2020-05-24] MEDS: Verapamil SR 240 MG Tablet PO (05:36)
[2020-05-24] MEDS: Carbidopa/Levodopa 25/250 Tablet PO ×3 (05:36→20:40)
[2020-05-24] MEDS: Carvedilol 6.25 MG Tablet PO ×2 (05:36→17:57)
[2020-05-24] MEDS: Senna/Docusate Sodium 1 Tablet PO ×2 (05:36→17:57)
[2020-05-24] MEDS: Nystatin Powder 15gm Bottle 1 APPLIC TOPICAL ×2 (05:36→20:41)
[2020-05-24] MEDS: Polyethylene Glycol 3350 17 GM PACKET PO (05:36)
[2020-05-24] MEDS: Furosemide 40 MG Tablet PO (05:36)
[2020-05-24] MEDS: Menthol/Lanolin/Calamine/Znox 113 GM Tube 1 APPLIC TOPICAL ×2 (05:42→20:38)
[2020-05-24 06:34] VITALS: O2SAT 97
--- NOTE | 2020-05-24 07:38 | PCA ---
Pt was hollering out from room, this aide went into patient's room and asked may i help you? pt stated the word home. this aide reassured pt where she was at and why she was here. aide turned on the tv and gave pt a drink of water, asked pt if she needed anything else she shook her head no. aide told pt that breakfast would be here shortly. pt said nothing more. aide exited room
[2020-05-24] MEDS: Venlafaxine HCl 75 MG Tablet 150 MG PO (08:53)
[2020-05-24] MEDS: Glimepiride 2 MG Tablet PO (08:53)
[2020-05-24] MEDS: Magnesium Chloride 64 MG Delay Rel.Tablet PO ×2 (08:53→17:56)
[2020-05-24] MEDS: Multivitamins,Therapeutic Tablet 1 TABLET PO (08:53)
[2020-05-24] MEDS: Cyanocobalamin 500 MCG Tablet 1000 MCG PO (08:53)
--- NOTE | 2020-05-24 08:58 | NURSING ---
PT REFUSED TONY WRAPS AND RIPPED ALL WRIST BANDS OFF. ASKED PT WHY AND PT STATED CAUSE I DONT LIKE THEM AND WANT TO GO HOME BAD! RN AWARE. WILL LET MARQUITA DORADO KNOW.
--- NOTE | 2020-05-24 10:55 | CASEMGMT ---
Addendum entered by Heaven Subramanian 05/24/20 13:49: Spoke with patient about requests to DC. Pt continues to reiterate she misses her family. SW called dtr with pt and dtr explained pt cannot come home yet. She needs to get stronger and become more independent to be safe at home alone during the day. SW offered for dtr to have grandkids make pictures/drawings, and/or bring in family pictures or anything else to make the room homier, and remind her of her family. Dtr will bring those in tomorrow for pt. Therapy fixed wifi on pt's phone so she can Face Time family and was Face Timing after therapy session this date. Original Note: Social Work Notified by nursing that pt is requesting to go home again today. SW to follow up with pt. Contacted dtr to get insight on pt's anxiety/depression, baseline, etc. Explained to dtr pt is consistently requesting to home and if that is her wish, regardless of our recommendations, we are to follow pt's wishes. Dtr stated she cannot have pt come home until she is more functional. HSe works during the day so pt is alone. Dtr explained her anxiety is normal, and does get fixated on things. She is okay with . adjusting medications to assist. She brought crossword puzzle books as that is pt's favorite thing to do and will do for hours. No other major interests. Inquired about Face Timing, dtr gets home with the children about 4 pm and could Face Time then .She states she does try to call pt daily around 8 am to help with starting the pt's day. Dtr has noticed some increased confusion and fogginess since hospitalization. Explained ST is working with pt and has identified those are some areas to work. Dtr appreciative. Notified physician of possible medication adjustments and legal billing coordinator and nursing of Face Time and interests. SW to continue to follow. Heaven Subramanian, SPECIAL FORCES WEAPONS SERGEANT RN NIGHT
[2020-05-24 11:00] VITALS: PULSE 78; RESP 18; O2SAT 96
--- NOTE | 2020-05-24 11:01 | PCM.PN.RX ---
<Karin Wagner - Last Filed: 05/24/20 11:01> Progress Note - Pharmacy Subjective: TCU Admission Objective: Allergies aspirin Allergy (Verified 05/18/20 23:52) Hives Penicillins Allergy (Verified 05/18/20 12:14) PT UNABLE TO RESPOND-NEEDS F/U Current Medications Generic Name Dose Route Start Last Admin Trade Name Freq PRN Reason Stop Dose Admin Acetaminophen 1,000 mg 05/22/20 20:16 05/23/20 04:36 Acetaminophen 500 Mg Tablet PO 1,000 mg Q6H PRN Administration Pain Score 1-10 Atorvastatin Calcium 80 mg 05/22/20 22:00 05/23/20 22:38 Atorvastatin Calcium 80 Mg Tablet PO 80 mg QHS CHANTAL Administration Bisacodyl 10 mg 05/22/20 12:07 Bisacodyl 10 Mg Suppository RECTAL DAILY PRN Constipation Calamine/Phenol 1 applic 05/22/20 22:00 05/24/20 05:42 Menthol/Lanolin/Calamine/Znox 113 Gm Tube TOPICAL 1 applicatio 0600,2200 CHANTAL Administration Protocol Carbidopa/Levodopa 1 tablet 05/22/20 14:00 05/24/20 05:36 Carbidopa/Levodopa 25/250 Tablet PO 1 tablet TID CHANTAL Administration Carvedilol 6.25 mg 05/22/20 18:00 05/24/20 05:36 Carvedilol 6.25 Mg Tablet PO 6.25 mg BID CHANTAL Administration Cyanocobalamin 1,000 mcg 05/23/20 08:00 05/24/20 08:53 Cyanocobalamin 500 Mcg Tablet PO 1,000 mcg DAILYCM CHANTAL Administration Furosemide 40 mg 05/23/20 06:00 05/24/20 05:36 Furosemide 40 Mg Tablet PO 40 mg DAILY CHANTAL Administration Glimepiride 2 mg 05/23/20 08:00 05/24/20 08:53 Glimepiride 2 Mg Tablet PO 2 mg DAILYCM CHANTAL Administration Magnesium Chloride 64 mg 05/22/20 17:00 05/24/20 08:53 Magnesium Chloride 64 Mg Delay Rel.Tablet PO 64 mg BIDCM CHANTAL Administration Magnesium Hydroxide 30 ml 05/22/20 20:17 Magnesium Hydroxide 30 Ml Udc PO DAILY PRN Constipation Menthol 1 applic 05/22/20 17:38 Menthol 60gm Tube TOPICAL 4X/DAY PRN PRN Pain Score 1-10 (SHOULDERS) Multivitamins 1 tablet 05/23/20 08:00 05/24/20 08:53 Multivitamins,Therapeutic Tablet PO 1 tablet DAILYCM CHANTAL Administration Nystatin 1 applic 05/22/20 22:00 05/24/20 05:36 Nystatin Powder 15gm Bottle TOPICAL 1 applicatio 0600,2200 CHANTAL Administration Protocol Polyethylene Glycol 17 gm 05/23/20 06:00 05/24/20 05:36 Polyethylene Glycol 3350 17 Gm Packet PO 17 gm DAILY CHANTAL Administration Senna/Docusate Sodium 1 tablet 05/23/20 06:00 05/24/20 05:36 Senna/Docusate Sodium 1 Tablet PO 1 tablet BID CHANTAL Administration Tuberculin PPD 5 tu 05/30/20 10:00 Tuberculin,Purif.Prot.Deriv. 50 Tu/Ml Vial ID 05/30/20 10:01 X1 ONE Venlafaxine HCl 150 mg 05/23/20 08:00 05/24/20 08:53 Venlafaxine Hcl 75 Mg Tablet PO 150 mg BREAKFAST CHANTAL Administration Venlafaxine HCl 75 mg 05/22/20 22:00 05/23/20 22:39 Venlafaxine Xr 75 Mg Capsule PO 75 mg QHS CHANTAL Administration Verapamil HCl 240 mg 05/23/20 06:00 05/24/20 05:36 Verapamil Sr 240 Mg Tablet PO 240 mg DAILY CHANTAL Administration Problem List Parkinson disease (Chronic) Debility (Acute) Carotid artery stenosis (Chronic) Hyperlipidemia (Chronic) Vitamin B12 deficiency (Chronic) Edema (Chronic) Hypomagnesemia (Chronic) Depression (Chronic) Body mass index (BMI) greater than 70 in adult (Chronic) CVA (cerebral vascular accident) (Acute) Hemorrhagic stroke (Chronic) Afib (Chronic) Diabetes (Chronic) Vital Signs Temp Pulse Resp BP Pulse Ox 98.5 F 90 16 158/80 H 97 05/24/20 05:32 05/24/20 05:32 05/24/20 05:32 05/24/20 05:32 05/24/20 06:34 Oxygen Flow Rate (L/min) 2 Oxygen Delivery Method Nasal Cannula Weight: 120.656 kg Body Mass Index (BMI) 47.1 Finger Stick Blood Glucose 170 Sodium 136 mmol/L (136-145) 05/23/20 05:10 Potassium 4.0 mmol/L (3.5-5.1) 05/23/20 05:10 Chloride 99 mmol/L (98-107) 05/23/20 05:10 Carbon Dioxide 30.0 mmol/L (21.0-32.0) 05/23/20 05:10 Anion Gap 7 (5-15) 05/23/20 05:10 BUN 24 mg/dL (7-18) H 05/23/20 05:10 Creatinine 1.11 mg/dL (0.55-1.02) H 05/23/20 05:10 Est GFR (MDRD) Af Amer 63 mL/min (>60) 05/23/20 05:10 Est GFR (MDRD) Non-Af 52 mL/min (>60) L 05/23/20 05:10 BUN/Creatinine Ratio 21.6 RATIO (-20) H 05/23/20 05:10 Glucose 159 mg/dL (74-106) H 05/23/20 05:10 Assessment/Plan: 1. Pain: acetaminophen 1000mg PO Q6H PRN pain score 1-10/10 and Bengay topical 4x/day PRN shoulder pain. Please monitor for improvement/worsening of pain and PRN usage. 2. Hyperlipidemia: atorvastatin 80mg PO QHS. Please continue to monitor cholesterol levels, liver function, and S/S of muscle pain. 3. Parkinson Disease: Sinemet 25/250mg PO TID. Please monitor LFTs, and S/S of dyskinesia. 4. Atrial Fibrillation: carvedilol 6.25mg PO BID and verapamil 240mg PO daily. Please monitor BP (last 158/80) and HR (last 90). Please see physician note regarding anticoagulation. 5. Edema: furosemide 40mg PO daily. Please monitor for weight loss/weight gain, swelling, electrolyte levels, and renal function. 6. Diabetes Mellitus II: glimepiride 2mg PO daily. Please monitor S/S of hypoglycemia, BG levels ( last BG 05/23/20 ; 191), and hemoglobin A1c (last 8.2%). *7. Vitamin B12 deficiency: B12 1000mcg PO daily. Last B12 serum concentration was high (05/19/20 >2000pg/L). Please consider stopping medication or decreasing the dose to 500mcg. Thanks. 8. Hypomagnesemia: magnesium chloride 64mg PO BID.Please continue to monitor electrolyte levels (last WNL). 9. Nutrition: Multivitamin 1 Tablet PO daily. Please continue to monitor. Psychotropic Medications: 1. Depression: venlafaxine 150mg PO QAM and venlafaxine XR 75mg PO QHS. Please refer to physician?s note for GDR recommendation. Unnecessary Medications: None Bowel Regimen: Miralax 17gm PO daily, Senna/Docusate 1 tablet PO BID, bisacodyl 10mg CA daily PRN constipation, magnesium hydroxide 30mL PO daily PRN constipation, please monitor for S/S of diarrhea / constipation and PRN usage. Date of Note:: 05/24/20 - Provider Comments Provider responsibility: Provider responsible to enter orders to implement recommendations <Mg Diop Chi - Last Filed: 05/24/20 16:36> Progress Note - Pharmacy Subjective: [] Objective: Allergies aspirin Allergy (Verified 05/18/20 23:52) Hives Penicillins Allergy (Verified 05/18/20 12:14) PT UNABLE TO RESPOND-NEEDS F/U Current Medications Generic Name Dose Route Start Last Admin Trade Name Freq PRN Reason Stop Dose Admin Acetaminophen 1,000 mg 05/22/20 20:16 05/23/20 04:36 Acetaminophen 500 Mg Tablet PO 1,000 mg Q6H PRN Administration Pain Score 1-10 Atorvastatin Calcium 80 mg 05/22/20 22:00 05/23/20 22:38 Atorvastatin Calcium 80 Mg Tablet PO 80 mg QHS CHANTAL Administration Bisacodyl 10 mg 05/22/20 12:07 Bisacodyl 10 Mg Suppository RECTAL DAILY PRN Constipation Calamine/Phenol 1 applic 05/22/20 22:00 05/24/20 05:42 Menthol/Lanolin/Calamine/Znox 113 Gm Tube TOPICAL 1 applicatio 0600,2200 CHANTAL Administration Protocol Carbidopa/Levodopa 1 tablet 05/22/20 14:00 05/24/20 14:09 Carbidopa/Levodopa 25/250 Tablet PO 1 tablet TID CHANTAL Administration Carvedilol 6.25 mg 05/22/20 18:00 05/24/20 05:36 Carvedilol 6.25 Mg Tablet PO 6.25 mg BID CHANTAL Administration Cyanocobalamin 1,000 mcg 05/23/20 08:00 05/24/20 08:53 Cyanocobalamin 500 Mcg Tablet PO 1,000 mcg DAILYCM CHANTAL Administration Furosemide 40 mg 05/23/20 06:00 05/24/20 05:36 Furosemide 40 Mg Tablet PO 40 mg DAILY CHANTAL Administration Glimepiride 2 mg 05/23/20 08:00 05/24/20 08:53 Glimepiride 2 Mg Tablet PO 2 mg DAILYCM CHANTAL Administration Magnesium Chloride 64 mg 05/22/20 17:00 05/24/20 08:53 Magnesium Chloride 64 Mg Delay Rel.Tablet PO 64 mg BIDCM CHANTAL Administration Magnesium Hydroxide 30 ml 05/22/20 20:17 Magnesium Hydroxide 30 Ml Udc PO DAILY PRN Constipation Menthol 1 applic 05/24/20 11:29 05/24/20 13:12 Menthol 226.8 Gm Jar TP 1 applic 4X/DAY PRN PRN Administration Pain Score 1-10 (SHOULDERS) Multivitamins 1 tablet 05/23/20 08:00 05/24/20 08:53 Multivitamins,Therapeutic [facility]t [facility] Administration Nystatin 1 applic 05/22/20 22:00 05/24/20 05:36 Nystatin Powder 15gm Bottle TOPICAL 1 applicatio 0600,2200 CHANTAL Administration Protocol Polyethylene Glycol 17 gm 05/23/20 06:00 05/24/20 05:36 Polyethylene Glycol 3350 17 Gm Packet PO 17 gm DAILY CHANTAL Administration Senna/Docusate Sodium 1 tablet 05/23/20 06:00 05/24/20 05:36 Senna/Docusate Sodium 1 Tablet PO 1 tablet BID CHANTAL Administration Tuberculin PPD 5 tu 05/30/20 10:00 Tuberculin,Purif.Prot.Deriv. 50 Tu/Ml Vial ID 05/30/20 10:01 X1 ONE Venlafaxine HCl 150 mg 05/23/20 08:00 05/24/20 08:53 Venlafaxine Hcl 75 Mg Tablet PO 150 mg BREAKFAST CHANTAL Administration Venlafaxine HCl 75 mg 05/22/20 22:00 05/23/20 22:39 Venlafaxine Xr 75 Mg Capsule PO 75 mg QHS CHANTAL Administration Verapamil HCl 240 mg 05/23/20 06:00 05/24/20 05:36 Verapamil Sr 240 Mg Tablet PO 240 mg DAILY CHANTAL Administration Problem List Parkinson disease (Chronic) Debility (Acute) Carotid artery stenosis (Chronic) Hyperlipidemia (Chronic) Vitamin B12 deficiency (Chronic) Edema (Chronic) Hypomagnesemia (Chronic) Depression (Chronic) Body mass index (BMI) greater than 70 in adult (Chronic) CVA (cerebral vascular accident) (Acute) Hemorrhagic stroke (Chronic) Afib (Chronic) Diabetes (Chronic) Vital Signs Temp Pulse Resp BP Pulse Ox 96.8 F L 78 17 144/98 H 98 05/24/20 13:27 05/24/20 13:27 05/24/20 13:27 05/24/20 13:27 05/24/20 13:27 Oxygen Flow Rate (L/min) 2 Oxygen Delivery Method Nasal Cannula Weight: 120.656 kg Body Mass Index (BMI) 47.1 Finger Stick Blood Glucose 170 Sodium 136 mmol/L (136-145) 05/23/20 05:10 Potassium 4.0 mmol/L (3.5-5.1) 05/23/20 05:10 Chloride 99 mmol/L (98-107) 05/23/20 05:10 Carbon Dioxide 30.0 mmol/L (21.0-32.0) 05/23/20 05:10 Anion Gap 7 (5-15) 05/23/20 05:10 BUN 24 mg/dL (7-18) H 05/23/20 05:10 Creatinine 1.11 mg/dL (0.55-1.02) H 05/23/20 05:10 Est GFR (MDRD) Af Amer 63 mL/min (>60) 05/23/20 05:10 Est GFR (MDRD) Non-Af 52 mL/min (>60) L 05/23/20 05:10 BUN/Creatinine Ratio 21.6 RATIO (-20) H 05/23/20 05:10 Glucose 159 mg/dL (74-106) H 05/23/20 05:10 Assessment/Plan: Psychotropic Medications: Unnecessary Medications: Bowel Regimen: - Provider Comments Provider responsibility: Provider responsible to enter orders to implement recommendations Provider Comments to Recommendations by Pharmacy: Agree
[2020-05-24] MEDS: MENTHOL 226.8 GM JAR 1 APPLIC TP (13:12)
[2020-05-24 13:27] VITALS: BP 144/98; PULSE 78; RESP 17; TEMP 36; O2SAT 98
--- NOTE | 2020-05-24 15:45 | NURSING ---
pt stated she didnt want family called. just wants to go home.
[2020-05-24] MEDS: Venlafaxine XR 75 MG Capsule PO (20:39)
[2020-05-24] MEDS: Atorvastatin Calcium 80 MG Tablet PO (20:40)
[2020-05-25 05:00] VITALS: BP 148/92; PULSE 96; RESP 18; TEMP 36.2; O2SAT 97
[2020-05-25] MEDS: Verapamil SR 240 MG Tablet PO (05:36)
[2020-05-25] MEDS: Carvedilol 6.25 MG Tablet PO ×2 (05:36→17:38)
[2020-05-25] MEDS: busPIRone 5 MG Tablet PO ×3 (05:36→22:35)
[2020-05-25] MEDS: Furosemide 40 MG Tablet PO (05:36)
[2020-05-25] MEDS: Senna/Docusate Sodium 1 Tablet PO ×2 (05:37→17:38)
[2020-05-25] MEDS: Menthol/Lanolin/Calamine/Znox 113 GM Tube 1 APPLIC TOPICAL ×2 (05:37→22:36)
[2020-05-25] MEDS: Carbidopa/Levodopa 25/250 Tablet PO ×3 (05:37→22:39)
[2020-05-25] MEDS: Polyethylene Glycol 3350 17 GM PACKET PO (05:37)
[2020-05-25] MEDS: Nystatin Powder 15gm Bottle 1 APPLIC TOPICAL ×2 (05:38→22:38)
[2020-05-25 06:30] LABS: Bedside Glucose 171 mg/dL (70-110)
[2020-05-25 06:34] VITALS: O2SAT 96
[2020-05-25] MEDS: Venlafaxine HCl 75 MG Tablet 150 MG PO (08:33)
[2020-05-25] MEDS: Glimepiride 2 MG Tablet PO (08:33)
[2020-05-25] MEDS: Multivitamins,Therapeutic Tablet 1 TABLET PO (08:34)
[2020-05-25] MEDS: Magnesium Chloride 64 MG Delay Rel.Tablet PO ×2 (08:34→17:37)
[2020-05-25] MEDS: Cyanocobalamin 500 MCG Tablet 1000 MCG PO (08:35)
[2020-05-25 14:23] VITALS: BP 118/58; PULSE 50; RESP 16; TEMP 36.3; O2SAT 98
[2020-05-25] MEDS: Atorvastatin Calcium 80 MG Tablet PO (22:36)
[2020-05-25] MEDS: Venlafaxine XR 75 MG Capsule PO (22:37)
--- NOTE | 2020-05-26 03:03 | NURSING ---
Pt resting in bed at this time, appears comfortable, no distress noted.
[2020-05-26 05:39] VITALS: BP 149/78; PULSE 89; RESP 18; TEMP 36; O2SAT 98
[2020-05-26] MEDS: Polyethylene Glycol 3350 17 GM PACKET PO (05:41)
[2020-05-26] MEDS: Senna/Docusate Sodium 1 Tablet PO ×2 (05:41→16:45)
[2020-05-26] MEDS: Verapamil SR 240 MG Tablet 120 MG PO (05:41)
[2020-05-26] MEDS: Furosemide 40 MG Tablet PO (05:41)
[2020-05-26] MEDS: Carbidopa/Levodopa 25/250 Tablet PO ×2 (05:41→21:07)
[2020-05-26] MEDS: busPIRone 5 MG Tablet PO ×2 (05:41→21:07)
[2020-05-26] MEDS: Carvedilol 6.25 MG Tablet PO ×2 (05:41→16:47)
[2020-05-26] MEDS: Nystatin Powder 15gm Bottle 1 APPLIC TOPICAL ×2 (05:42→21:11)
[2020-05-26] MEDS: Menthol/Lanolin/Calamine/Znox 113 GM Tube 1 APPLIC TOPICAL ×2 (05:42→21:10)
[2020-05-26 06:26] LABS: Bedside Glucose 172 mg/dL (70-110)
[2020-05-26 07:23] VITALS: O2SAT 95
[2020-05-26] MEDS: Cyanocobalamin 500 MCG Tablet 1000 MCG PO (08:18)
[2020-05-26] MEDS: Venlafaxine HCl 75 MG Tablet 150 MG PO (08:18)
[2020-05-26] MEDS: Glimepiride 2 MG Tablet PO (08:18)
[2020-05-26] MEDS: Multivitamins,Therapeutic Tablet 1 TABLET PO (08:19)
[2020-05-26] MEDS: Magnesium Chloride 64 MG Delay Rel.Tablet PO ×2 (08:19→16:45)
[2020-05-26 10:00] VITALS: PULSE 74; RESP 18; O2SAT 96
--- NOTE | 2020-05-26 12:45 | NURSING ---
Resident notified of COVID Outbreak status, left message for daughterAmairani to call.
--- NOTE | 2020-05-26 12:54 | NURSING ---
Daughter, Amairani, notified of COVID Outbreak status.
--- NOTE | 2020-05-26 14:25 | NURSING ---
Pt refused 1400 medications stating Im sick of taking these, everyday it is the same thing!
[2020-05-26 14:37] VITALS: BP 137/74; PULSE 71; RESP 16; TEMP 36.2; O2SAT 98
[2020-05-26] MEDS: Venlafaxine XR 75 MG Capsule PO (21:06)
[2020-05-26] MEDS: Atorvastatin Calcium 80 MG Tablet PO (21:06)
--- NOTE | 2020-05-27 03:12 | NURSING ---
Pt resting in bed with eyes closed, hob elevated, o2 remains in plsce per nc.
[2020-05-27] MEDS: Menthol/Lanolin/Calamine/Znox 113 GM Tube 1 APPLIC TOPICAL ×2 (04:15→21:30)
[2020-05-27] MEDS: Nystatin Powder 15gm Bottle 1 APPLIC TOPICAL ×2 (04:15→21:30)
[2020-05-27 05:45] VITALS: BP 149/84; PULSE 81; RESP 18; TEMP 36.1; O2SAT 99
[2020-05-27 05:56] LABS: Bedside Glucose 147 mg/dL (70-110)
--- NOTE | 2020-05-27 06:38 | NURSING ---
Pt resting in bed, wakes up to voice and touch, states she does not want to take her meds right now and closes her eyes and goes back to cleep. Will attempt later.
[2020-05-27] MEDS: Verapamil SR 240 MG Tablet 120 MG PO (08:35)
[2020-05-27] MEDS: Polyethylene Glycol 3350 17 GM PACKET PO (08:35)
[2020-05-27] MEDS: Carvedilol 6.25 MG Tablet PO ×2 (08:36→17:22)
[2020-05-27] MEDS: Furosemide 40 MG Tablet PO (08:36)
[2020-05-27] MEDS: Senna/Docusate Sodium 1 Tablet PO ×2 (08:36→17:22)
[2020-05-27] MEDS: Carbidopa/Levodopa 25/250 Tablet PO ×3 (08:36→21:30)
[2020-05-27] MEDS: busPIRone 5 MG Tablet PO ×3 (08:36→21:30)
[2020-05-27] MEDS: Venlafaxine HCl 75 MG Tablet 150 MG PO (08:37)
[2020-05-27] MEDS: Glimepiride 2 MG Tablet PO (08:37)
[2020-05-27] MEDS: Magnesium Chloride 64 MG Delay Rel.Tablet PO ×2 (08:37→17:22)
[2020-05-27] MEDS: Multivitamins,Therapeutic Tablet 1 TABLET PO (08:37)
[2020-05-27] MEDS: Cyanocobalamin 500 MCG Tablet 1000 MCG PO (08:38)
[2020-05-27 17:02] VITALS: O2SAT 99
[2020-05-27 17:16] LABS: Bedside Glucose 139 mg/dL (70-110)
[2020-05-27 17:28] VITALS: BP 110/58; PULSE 87; RESP 18; TEMP 36.9; O2SAT 95
[2020-05-27] MEDS: Atorvastatin Calcium 80 MG Tablet PO (21:30)
[2020-05-27] MEDS: Venlafaxine XR 75 MG Capsule PO (21:30)
[2020-05-27] MEDS: MENTHOL 226.8 GM JAR 1 APPLIC TP (21:39)
--- NOTE | 2020-05-27 21:41 | NURSING ---
pt alert and oriented, pleasant, sat up on side of bed to take meds, diet coke given per request with meds. assisted to stand and scoot up to head of bed, returned to bed with 1 assist. Blue gel applied to shoulders and neck per request. hob elevated. o2 remains on at 2.5l per nc
[2020-05-28 06:26] VITALS: BP 141/89; PULSE 95; RESP 18; TEMP 35.8; O2SAT 98
[2020-05-28] MEDS: Carvedilol 6.25 MG Tablet PO ×2 (06:28→17:46)
[2020-05-28] MEDS: Senna/Docusate Sodium 1 Tablet PO ×2 (06:28→17:46)
[2020-05-28] MEDS: Verapamil SR 240 MG Tablet 120 MG PO (06:28)
[2020-05-28] MEDS: Polyethylene Glycol 3350 17 GM PACKET PO (06:28)
[2020-05-28] MEDS: busPIRone 5 MG Tablet PO ×3 (06:28→20:09)
[2020-05-28] MEDS: Carbidopa/Levodopa 25/250 Tablet PO ×3 (06:28→20:08)
[2020-05-28] MEDS: Furosemide 40 MG Tablet PO (06:28)
[2020-05-28] MEDS: Menthol/Lanolin/Calamine/Znox 113 GM Tube 1 APPLIC TOPICAL ×2 (06:32→20:09)
[2020-05-28] MEDS: Nystatin Powder 15gm Bottle 1 APPLIC TOPICAL ×2 (06:32→20:10)
[2020-05-28 06:35] LABS: Bedside Glucose 158 mg/dL (70-110)
[2020-05-28] MEDS: Glimepiride 2 MG Tablet PO (08:58)
[2020-05-28] MEDS: Magnesium Chloride 64 MG Delay Rel.Tablet PO ×2 (08:58→17:46)
[2020-05-28] MEDS: Multivitamins,Therapeutic Tablet 1 TABLET PO (08:58)
[2020-05-28] MEDS: Cyanocobalamin 500 MCG Tablet 1000 MCG PO (08:58)
[2020-05-28] MEDS: Venlafaxine HCl 75 MG Tablet 150 MG PO (08:58)
[2020-05-28 10:00] VITALS: PULSE 98; O2SAT 98
[2020-05-28 13:24] VITALS: BP 141/82; PULSE 83; RESP 17; TEMP 36.2; O2SAT 98
--- NOTE | 2020-05-28 14:08 | NURSING ---
Sales Representative [employer] Note: Assisted resident in charging iphone and connecting to wi-fi. Woods Laborer not working, Used charging station [facility] to charge phone. Res requires assistance in using wi-fi and apps. Left message for daughter requesting she bring new stockroom attendant and informing her that phone is now up to date.
--- NOTE | 2020-05-28 17:32 | NURSING ---
Daughter, Amairani notified of negative COVID results.
[2020-05-28] MEDS: Atorvastatin Calcium 80 MG Tablet PO (20:09)
[2020-05-28] MEDS: Venlafaxine XR 75 MG Capsule PO (20:09)
[2020-05-29 06:11] VITALS: BP 153/103; PULSE 66; RESP 17; TEMP 36.3; O2SAT 98
[2020-05-29] MEDS: Polyethylene Glycol 3350 17 GM PACKET PO (06:14)
[2020-05-29] MEDS: Furosemide 40 MG Tablet PO (06:15)
[2020-05-29] MEDS: Menthol/Lanolin/Calamine/Znox 113 GM Tube 1 APPLIC TOPICAL ×2 (06:15→21:11)
[2020-05-29] MEDS: Carvedilol 6.25 MG Tablet PO ×2 (06:15→18:12)
[2020-05-29] MEDS: Senna/Docusate Sodium 1 Tablet PO ×2 (06:15→18:11)
[2020-05-29] MEDS: busPIRone 5 MG Tablet PO ×3 (06:15→21:10)
[2020-05-29] MEDS: Verapamil SR 240 MG Tablet 120 MG PO (06:15)
[2020-05-29] MEDS: Carbidopa/Levodopa 25/250 Tablet PO ×3 (06:15→21:10)
[2020-05-29] MEDS: Nystatin Powder 15gm Bottle 1 APPLIC TOPICAL ×2 (06:16→21:11)
[2020-05-29 06:21] LABS: Bedside Glucose 172 mg/dL (70-110)
[2020-05-29] MEDS: Magnesium Chloride 64 MG Delay Rel.Tablet PO ×2 (08:47→18:12)
[2020-05-29] MEDS: Venlafaxine HCl 75 MG Tablet 150 MG PO (08:47)
[2020-05-29] MEDS: Multivitamins,Therapeutic Tablet 1 TABLET PO (08:47)
[2020-05-29] MEDS: Cyanocobalamin 500 MCG Tablet 1000 MCG PO (08:47)
[2020-05-29] MEDS: Glimepiride 2 MG Tablet PO (08:47)
[2020-05-29 14:24] VITALS: BP 142/80; PULSE 79; RESP 18; TEMP 36.3; O2SAT 98
--- NOTE | 2020-05-29 15:55 | NURSING ---
Resident and daughter, Amairani, notified of staff member testing positive for COVId-19.
[2020-05-29] MEDS: Venlafaxine XR 75 MG Capsule PO (21:10)
[2020-05-29] MEDS: Atorvastatin Calcium 80 MG Tablet PO (21:11)
[2020-05-29] MEDS: MENTHOL 226.8 GM JAR 1 APPLIC TP (21:14)
--- NOTE | 2020-05-29 21:15 | NURSING ---
Pt resting in bed, alert and oriented x3, asked how she is, pt states I'd be better if you people would let me sleep. Asked pt to take meds with diet coke then I would let her rest, pt agreeable and pleasant, took meds with applesauce and drank diet coke. Assessment done, pt incontinent of urine, arielle care given and dry attends placed, pt pulled up in bed, blue gel applied to neck and shoulders per request.
--- NOTE | 2020-05-30 02:43 | NURSING ---
Pt resting in bed, hob slightly elevated, resting with eyes closed, resp even, o2 remains on at 2.5L.
[2020-05-30 06:06] LABS: Absolute Lymphocyte Count 1.12 X10^3/uL (0.83-4.51); Absolute Neutrophil Count 5.7 X10^3/uL (2.0-7.7); Basophil# 0.03 X10^3/uL; Basophil% 0.4 % (0-1); Eosinophil# 0.21 X10^3/uL; Eosinophils% 2.7 % (0-5); Hematocrit 38.4 % (37-47); Hemoglobin 11.8 g/dL (12.0-15.0); Lymphocyte # 1.12 X10^3/ul (4.0); Lymphocyte % 14.2 % (19-41); Mean Corp Hgb Conc 30.7 g/dL (32-36); Mean Corpuscular Hgb 30.4 pg (27.0-32.0); Mean Platelet Vol. 9.5 fl (6.2-12.0); Monocyte# 0.79 X10^3/uL; NRBC Flagged by Analyzer 0 % (0-5); Neutrophil # 5.72 X10^3/uL (2.7-7.7); Neutrophil % 72.3 % (47-70); Platelet Count 245 K/mm3 (150-450); RBC Distribution Width CV 14.3 % (11.6-14.6); RBC Distribution Width SD 51.9 fl (35.1-43.9); Red Blood Count 3.88 M/mm3 (4.2-5.4); White Blood Count 7.9 K/mm3 (4.4-11.0)
[2020-05-30 06:25] VITALS: BP 141/96; PULSE 99; RESP 18; TEMP 35.8; O2SAT 97
[2020-05-30] MEDS: Carvedilol 6.25 MG Tablet PO ×2 (06:26→18:43)
[2020-05-30] MEDS: Verapamil SR 240 MG Tablet 120 MG PO (06:26)
[2020-05-30] MEDS: busPIRone 5 MG Tablet PO ×3 (06:26→20:24)
[2020-05-30] MEDS: Furosemide 40 MG Tablet PO (06:26)
[2020-05-30] MEDS: Polyethylene Glycol 3350 17 GM PACKET PO (06:26)
[2020-05-30] MEDS: Carbidopa/Levodopa 25/250 Tablet PO ×3 (06:27→20:28)
[2020-05-30] MEDS: Senna/Docusate Sodium 1 Tablet PO ×2 (06:27→18:43)
[2020-05-30] MEDS: Menthol/Lanolin/Calamine/Znox 113 GM Tube 1 APPLIC TOPICAL ×2 (06:32→20:27)
[2020-05-30] MEDS: Nystatin Powder 15gm Bottle 1 APPLIC TOPICAL ×2 (06:32→20:28)
[2020-05-30 06:42] LABS: Anion Gap 4 (5-15); BUN 29 mg/dL (7-18); BUN/Creat Ratio 30.9 RATIO (10-20); Calcium,Total 9.1 mg/dL (8.5-10.1); Chloride 105 mmol/L (98-107); Creatinine, Serum 0.94 mg/dL (0.55-1.02); EST Glomerular Filtration Rate 63 mL/min (>60); Est Glom Filt Rate - Afr Amer 76 mL/min (>60); Estimated Creatinine Clearance 47.38 ml/min; Glucose 154 mg/dL (74-106); Potassium 4.3 mmol/L (3.5-5.1); Sodium Level 139 mmol/L (136-145)
[2020-05-30 06:50] LABS: Bedside Glucose 167 mg/dL (70-110)
[2020-05-30] MEDS: Glimepiride 2 MG Tablet PO (08:41)
[2020-05-30] MEDS: Venlafaxine HCl 75 MG Tablet 150 MG PO (08:41)
[2020-05-30] MEDS: Multivitamins,Therapeutic Tablet 1 TABLET PO (08:42)
[2020-05-30] MEDS: Magnesium Chloride 64 MG Delay Rel.Tablet PO ×2 (08:42→18:43)
[2020-05-30] MEDS: Cyanocobalamin 500 MCG Tablet 1000 MCG PO (08:42)
--- NOTE | 2020-05-30 09:51 | CASEMGMT ---
Addendum entered by Heaven Subramanian 05/30/20 15:40: Contacted JFS to confirm QIT qualification. Explained pt's finances. JFS stated pt would still qualify for QIT to submit application for review. Contacted dtr and explained above. Dtr appreciative and agreeable to complete Medicaid application. Emailed ISIDRO [place]. Explained to dtr [facility] are in network with [employer] but do not consistently take ISIDRO pending. Dtr understood. Informed dtr insurance approved additional days, NRD 06/05, anticipated DC 06/08. Will continue to follow. Addendum entered by Heaven Subramanian 05/30/20 10:01: Spoke with dtr further and pt makes over $3,000 per month and will not qualify for Medicaid or QIT. Explained this to dtr and the options of paying privately for nonskilled HHC or SNF. Dtr explains pt spends income monthly and has no savings and only has one life insurance policy. Dtr will decide what to do. Will continue to follow. Original Note: Social Work IDT met with patient and dtr via conference call for care plan meeting. Discussed patient's progress in therapy. Pt is Ethel to CGA for bed mobility, CGA for tx and ambulating 20-40 ft with FWW, using 2# wts for LE exercises. Pt needs cuing to stay on task once started, having left visual neglect and needs to improve on activity tolerance. Pt is SBA for grooming, maxA for LE ADLs, Ethel for UE ADLs, toileting transfers Ethel with close w/c follow, modA for toileting tasks. Pt is out of isolation 06/05. Explained [employer] MC insurance with NRD 05/30 and continued stay is not guaranteed. Provided and explained nh predict with [facility]C 06/08. IDT recommending pt having 24/7 supervision and cannot be home alone. Dtr works during the day and cannot hire 24/7 care; therefore, dtr states pt would need to go to SNF. Dtr would like referrals to the [facility]. Explained in network facilities, but that insurance will not pay for room and board. Pt would need to apply for Medicaid. Will email application to dtr. Will continue to follow. Heaven Subramanian, JORGE MORINW
[2020-05-30 10:00] VITALS: RESP 16; O2SAT 95
[2020-05-30] MEDS: Tuberculin,Purif.prot.deriv. 50 TU/ML Vial 5 ML ID (10:40)
[2020-05-30 14:24] VITALS: BP 119/88; PULSE 68; RESP 18; TEMP 36.4; O2SAT 98
[2020-05-30] MEDS: Venlafaxine XR 75 MG Capsule PO (20:26)
[2020-05-30] MEDS: Atorvastatin Calcium 80 MG Tablet PO (20:27)
[2020-05-31 05:00] VITALS: BP 154/82; PULSE 74; RESP 18; TEMP 36.6; O2SAT 99
[2020-05-31 06:35] LABS: Bedside Glucose 196 mg/dL (70-110)
[2020-05-31] MEDS: Carbidopa/Levodopa 25/250 Tablet PO ×3 (06:40→21:48)
[2020-05-31] MEDS: Furosemide 40 MG Tablet PO (06:40)
[2020-05-31] MEDS: Verapamil SR 240 MG Tablet 120 MG PO (06:40)
[2020-05-31] MEDS: Polyethylene Glycol 3350 17 GM PACKET PO (06:40)
[2020-05-31] MEDS: busPIRone 5 MG Tablet PO ×3 (06:41→21:48)
[2020-05-31] MEDS: Nystatin Powder 15gm Bottle 1 APPLIC TOPICAL ×2 (06:41→21:50)
[2020-05-31] MEDS: Senna/Docusate Sodium 1 Tablet PO ×2 (06:41→18:11)
[2020-05-31] MEDS: Menthol/Lanolin/Calamine/Znox 113 GM Tube 1 APPLIC TOPICAL ×2 (06:42→22:05)
[2020-05-31] MEDS: Carvedilol 6.25 MG Tablet PO ×2 (06:42→18:11)
[2020-05-31 06:58] VITALS: O2SAT 96
[2020-05-31] MEDS: Glimepiride 2 MG Tablet PO (09:07)
[2020-05-31] MEDS: Multivitamins,Therapeutic Tablet 1 TABLET PO (09:07)
[2020-05-31] MEDS: Cyanocobalamin 500 MCG Tablet 1000 MCG PO (09:08)
[2020-05-31] MEDS: Magnesium Chloride 64 MG Delay Rel.Tablet PO ×2 (09:08→18:15)
[2020-05-31] MEDS: Venlafaxine HCl 75 MG Tablet 150 MG PO (09:08)
[2020-05-31 13:58] VITALS: BP 134/77; PULSE 67; RESP 16; TEMP 36.6; O2SAT 99
[2020-05-31] MEDS: Atorvastatin Calcium 80 MG Tablet PO (21:48)
[2020-05-31] MEDS: Venlafaxine XR 75 MG Capsule PO (21:48)
[2020-05-31] MEDS: MENTHOL 226.8 GM JAR 1 APPLIC TP (22:05)
--- NOTE | 2020-05-31 22:10 | NURSING ---
pt resting in bed, with eyes closed, wakens easily, does not want to be moved at this time, but explained to pt that she is wet and I need to change her and give her meds, pt agreeable. Pt incontinent of x-large amount of urine, arielle care given and dry bedding and attends placed, pt sat up in bed for meds, given diet coke, pt calm and pleasant.
[2020-06-01 06:08] VITALS: BP 134/66; PULSE 97; RESP 18; TEMP 36; O2SAT 99
[2020-06-01] MEDS: Furosemide 40 MG Tablet PO (06:10)
[2020-06-01] MEDS: Carbidopa/Levodopa 25/250 Tablet PO ×3 (06:10→22:00)
[2020-06-01] MEDS: Polyethylene Glycol 3350 17 GM PACKET PO (06:10)
[2020-06-01] MEDS: Carvedilol 6.25 MG Tablet PO ×2 (06:10→17:52)
[2020-06-01] MEDS: Verapamil SR 240 MG Tablet 120 MG PO (06:10)
[2020-06-01] MEDS: busPIRone 5 MG Tablet PO ×3 (06:11→22:01)
[2020-06-01] MEDS: Senna/Docusate Sodium 1 Tablet PO ×2 (06:12→17:52)
[2020-06-01] MEDS: Menthol/Lanolin/Calamine/Znox 113 GM Tube 1 APPLIC TOPICAL ×2 (06:14→22:04)
[2020-06-01] MEDS: Nystatin Powder 15gm Bottle 1 APPLIC TOPICAL ×2 (06:14→22:04)
[2020-06-01 06:40] LABS: Bedside Glucose 153 mg/dL (70-110)
[2020-06-01 08:15] VITALS: O2SAT 98
[2020-06-01] MEDS: Multivitamins,Therapeutic Tablet 1 TABLET PO (08:22)
[2020-06-01] MEDS: Glimepiride 2 MG Tablet PO (08:22)
[2020-06-01] MEDS: Venlafaxine HCl 75 MG Tablet 150 MG PO (08:23)
[2020-06-01] MEDS: Cyanocobalamin 500 MCG Tablet 1000 MCG PO (08:23)
[2020-06-01] MEDS: Magnesium Chloride 64 MG Delay Rel.Tablet PO ×2 (08:23→17:52)
[2020-06-01 13:42] VITALS: BP 132/73; PULSE 79; RESP 15; TEMP 36.6; O2SAT 98
--- NOTE | 2020-06-01 14:32 | CASEMGMT ---
Social Work Dtr completed ISIDRO application. Submitted to [facility] can accept pt and will contact dtr. Have not heard any response from [facility]. Will continue to follow. JORGE Sampson
[2020-06-01] MEDS: Atorvastatin Calcium 80 MG Tablet PO (22:01)
[2020-06-01] MEDS: Venlafaxine XR 75 MG Capsule PO (22:02)
[2020-06-02 05:00] VITALS: BP 153/80; PULSE 86; RESP 16; TEMP 36.8; O2SAT 95
[2020-06-02] MEDS: busPIRone 5 MG Tablet PO ×3 (06:22→21:42)
[2020-06-02] MEDS: Carvedilol 6.25 MG Tablet PO ×2 (06:22→17:13)
[2020-06-02] MEDS: Verapamil SR 240 MG Tablet 120 MG PO (06:22)
[2020-06-02] MEDS: Furosemide 40 MG Tablet PO (06:22)
[2020-06-02] MEDS: Senna/Docusate Sodium 1 Tablet PO ×2 (06:22→17:13)
[2020-06-02] MEDS: Carbidopa/Levodopa 25/250 Tablet PO ×3 (06:23→21:45)
[2020-06-02] MEDS: Nystatin Powder 15gm Bottle 1 APPLIC TOPICAL ×2 (06:24→21:45)
[2020-06-02] MEDS: Menthol/Lanolin/Calamine/Znox 113 GM Tube 1 APPLIC TOPICAL ×2 (06:25→21:43)
[2020-06-02] MEDS: Polyethylene Glycol 3350 17 GM PACKET PO (06:25)
[2020-06-02 06:31] LABS: Bedside Glucose 150 mg/dL (70-110)
[2020-06-02] MEDS: Glimepiride 2 MG Tablet PO (08:53)
[2020-06-02] MEDS: Magnesium Chloride 64 MG Delay Rel.Tablet PO ×2 (08:53→17:13)
[2020-06-02] MEDS: Cyanocobalamin 500 MCG Tablet 1000 MCG PO (08:53)
[2020-06-02] MEDS: Multivitamins,Therapeutic Tablet 1 TABLET PO (08:53)
[2020-06-02] MEDS: Venlafaxine HCl 75 MG Tablet 150 MG PO (08:53)
[2020-06-02 13:51] VITALS: BP 112/80; PULSE 83; RESP 16; TEMP 36.1; O2SAT 96
[2020-06-02] MEDS: Atorvastatin Calcium 80 MG Tablet PO (21:44)
[2020-06-02] MEDS: Venlafaxine XR 75 MG Capsule PO (21:44)
[2020-06-03 05:00] VITALS: BP 112/67; PULSE 83; RESP 18; TEMP 36.6; O2SAT 99
[2020-06-03] MEDS: Senna/Docusate Sodium 1 Tablet PO ×2 (05:33→17:00)
[2020-06-03] MEDS: Verapamil SR 240 MG Tablet 120 MG PO (05:33)
[2020-06-03] MEDS: Furosemide 40 MG Tablet PO (05:34)
[2020-06-03] MEDS: Carvedilol 6.25 MG Tablet PO ×2 (05:34→17:00)
[2020-06-03] MEDS: busPIRone 5 MG Tablet PO ×3 (05:34→21:21)
[2020-06-03] MEDS: Carbidopa/Levodopa 25/250 Tablet PO ×3 (05:34→21:21)
[2020-06-03] MEDS: Menthol/Lanolin/Calamine/Znox 113 GM Tube 1 APPLIC TOPICAL ×2 (05:36→21:21)
[2020-06-03] MEDS: Nystatin Powder 15gm Bottle 1 APPLIC TOPICAL ×2 (05:36→21:22)
[2020-06-03] MEDS: Polyethylene Glycol 3350 17 GM PACKET PO (05:36)
[2020-06-03 06:20] LABS: Bedside Glucose 161 mg/dL (70-110)
[2020-06-03 07:53] VITALS: O2SAT 97
[2020-06-03] MEDS: Magnesium Chloride 64 MG Delay Rel.Tablet PO ×2 (08:50→16:58)
[2020-06-03] MEDS: Glimepiride 2 MG Tablet PO (08:50)
[2020-06-03] MEDS: Multivitamins,Therapeutic Tablet 1 TABLET PO (08:50)
[2020-06-03] MEDS: Venlafaxine HCl 75 MG Tablet 150 MG PO (08:51)
[2020-06-03] MEDS: Cyanocobalamin 500 MCG Tablet 1000 MCG PO (08:51)
[2020-06-03 10:00] VITALS: PULSE 66; RESP 18; O2SAT 99
[2020-06-03 13:29] VITALS: BP 130/70; PULSE 80; RESP 20; TEMP 36.3; O2SAT 96
[2020-06-03] MEDS: Venlafaxine XR 75 MG Capsule PO (21:21)
[2020-06-03] MEDS: Atorvastatin Calcium 80 MG Tablet PO (21:21)
[2020-06-04 06:08] VITALS: BP 125/83; PULSE 80; RESP 16; TEMP 36; O2SAT 98
[2020-06-04] MEDS: Furosemide 40 MG Tablet PO (06:09)
[2020-06-04] MEDS: Senna/Docusate Sodium 1 Tablet PO (06:09)
[2020-06-04] MEDS: Carvedilol 6.25 MG Tablet PO ×2 (06:09→16:54)
[2020-06-04] MEDS: Polyethylene Glycol 3350 17 GM PACKET PO (06:09)
[2020-06-04] MEDS: Nystatin Powder 15gm Bottle 1 APPLIC TOPICAL ×2 (06:10→21:23)
[2020-06-04] MEDS: Carbidopa/Levodopa 25/250 Tablet PO ×3 (06:10→21:22)
[2020-06-04] MEDS: Verapamil SR 240 MG Tablet 120 MG PO (06:10)
[2020-06-04] MEDS: Menthol/Lanolin/Calamine/Znox 113 GM Tube 1 APPLIC TOPICAL ×2 (06:11→21:23)
[2020-06-04] MEDS: busPIRone 5 MG Tablet PO ×3 (06:11→21:23)
[2020-06-04 06:35] LABS: Bedside Glucose 126 mg/dL (70-110)
[2020-06-04 07:00] VITALS: O2SAT 96
[2020-06-04] MEDS: Venlafaxine HCl 75 MG Tablet 150 MG PO (07:51)
[2020-06-04] MEDS: Glimepiride 2 MG Tablet PO (07:51)
[2020-06-04] MEDS: Multivitamins,Therapeutic Tablet 1 TABLET PO (07:51)
[2020-06-04] MEDS: Magnesium Chloride 64 MG Delay Rel.Tablet PO ×2 (07:51→16:53)
[2020-06-04] MEDS: Cyanocobalamin 500 MCG Tablet 1000 MCG PO (07:51)
[2020-06-04 13:21] VITALS: BP 149/88; PULSE 86; RESP 17; TEMP 36; O2SAT 98
--- NOTE | 2020-06-04 17:12 | MDS.RN ---
Information for the mds was obtained from review of the clinical record, interview of resident, staff, and direct observation of resident's care. will await for [facility] for approval of [facility] before sending to [facility] Billing.
[2020-06-04] MEDS: Atorvastatin Calcium 80 MG Tablet PO (21:23)
[2020-06-04] MEDS: Venlafaxine XR 75 MG Capsule PO (21:23)
[2020-06-05 04:47] VITALS: BP 158/68; PULSE 98; RESP 18; TEMP 35.6; O2SAT 98
[2020-06-05] MEDS: busPIRone 5 MG Tablet PO ×3 (04:52→21:24)
[2020-06-05] MEDS: Verapamil SR 240 MG Tablet 120 MG PO (04:52)
[2020-06-05] MEDS: Carbidopa/Levodopa 25/250 Tablet PO ×3 (04:52→21:23)
[2020-06-05] MEDS: Polyethylene Glycol 3350 17 GM PACKET PO (04:52)
[2020-06-05] MEDS: Senna/Docusate Sodium 1 Tablet PO (04:52)
[2020-06-05] MEDS: Carvedilol 6.25 MG Tablet PO ×2 (04:53→17:51)
[2020-06-05] MEDS: Furosemide 40 MG Tablet PO (04:53)
[2020-06-05] MEDS: Menthol/Lanolin/Calamine/Znox 113 GM Tube 1 APPLIC TOPICAL ×2 (04:56→21:24)
[2020-06-05] MEDS: Nystatin Powder 15gm Bottle 1 APPLIC TOPICAL ×2 (04:57→21:25)
[2020-06-05 06:46] LABS: Bedside Glucose 180 mg/dL (70-110)
[2020-06-05 06:56] VITALS: O2SAT 98
[2020-06-05] MEDS: Venlafaxine HCl 75 MG Tablet 150 MG PO (08:14)
[2020-06-05] MEDS: Multivitamins,Therapeutic Tablet 1 TABLET PO (08:14)
[2020-06-05] MEDS: Cyanocobalamin 500 MCG Tablet 1000 MCG PO (08:14)
[2020-06-05] MEDS: Glimepiride 2 MG Tablet PO (08:14)
[2020-06-05] MEDS: Magnesium Chloride 64 MG Delay Rel.Tablet PO ×2 (08:14→17:51)
--- NOTE | 2020-06-05 13:17 | CASEMGMT ---
Social Work Received pt's Medicaid pending number #[id number]. Insurance update today. If pt is DC'd pt will transfer to [facility]. Will continue to follow. JORGE SampsonW
[2020-06-05 13:42] VITALS: PULSE 93; O2SAT 98
[2020-06-05 14:00] VITALS: BP 106/70; PULSE 77; RESP 16; TEMP 36.3; O2SAT 95
[2020-06-05] MEDS: Atorvastatin Calcium 80 MG Tablet PO (21:24)
[2020-06-05] MEDS: Venlafaxine XR 75 MG Capsule PO (21:24)
[2020-06-06 01:32] VITALS: BP 152/95; PULSE 79; RESP 18; TEMP 36.5; O2SAT 99
[2020-06-06 05:38] LABS: Absolute Lymphocyte Count 1.38 X10^3/uL (0.83-4.51); Basophil# 0.03 X10^3/uL; Basophil% 0.4 % (0-1); Eosinophil# 0.23 X10^3/uL; Eosinophils% 2.8 % (0-5); Hematocrit 40.6 % (37-47); Hemoglobin 12.5 g/dL (12.0-15.0); Lymphocyte # 1.38 X10^3/ul (4.0); Lymphocyte % 16.7 % (19-41); Mean Corp Hgb Conc 30.8 g/dL (32-36); Mean Corpuscular Hgb 29.9 pg (27.0-32.0); Mean Corpuscular Volume 97.1 fL (81-99); Mean Platelet Vol. 9.3 fl (6.2-12.0); Monocyte# 0.64 X10^3/uL; Monocyte% 7.7 % (0-10); NRBC Flagged by Analyzer 0 % (0-5); Neutrophil # 5.98 X10^3/uL (2.7-7.7); Neutrophil % 72.2 % (47-70); Platelet Count 249 K/mm3 (150-450); RBC Distribution Width CV 14.1 % (11.6-14.6); RBC Distribution Width SD 50.2 fl (35.1-43.9); Red Blood Count 4.18 M/mm3 (4.2-5.4); White Blood Count 8.3 K/mm3 (4.4-11.0)
[2020-06-06] MEDS: Carbidopa/Levodopa 25/250 Tablet PO ×3 (05:41→20:02)
[2020-06-06] MEDS: busPIRone 5 MG Tablet PO ×3 (05:41→19:59)
[2020-06-06] MEDS: Verapamil SR 240 MG Tablet 120 MG PO (05:41)
[2020-06-06] MEDS: Carvedilol 6.25 MG Tablet PO ×2 (05:41→18:34)
[2020-06-06] MEDS: Furosemide 40 MG Tablet PO (05:41)
[2020-06-06] MEDS: Senna/Docusate Sodium 1 Tablet PO ×2 (05:41→18:34)
[2020-06-06] MEDS: Nystatin Powder 15gm Bottle 1 APPLIC TOPICAL ×2 (05:43→20:01)
[2020-06-06] MEDS: Polyethylene Glycol 3350 17 GM PACKET PO (05:43)
[2020-06-06] MEDS: Menthol/Lanolin/Calamine/Znox 113 GM Tube 1 APPLIC TOPICAL ×2 (05:43→19:59)
[2020-06-06 06:12] LABS: Anion Gap 6 (5-15); BUN 22 mg/dL (7-18); BUN/Creat Ratio 23.2 RATIO (10-20); Calcium,Total 8.6 mg/dL (8.5-10.1); Chloride 103 mmol/L (98-107); Creatinine, Serum 0.95 mg/dL (0.55-1.02); EST Glomerular Filtration Rate 62 mL/min (>60); Est Glom Filt Rate - Afr Amer 75 mL/min (>60); Estimated Creatinine Clearance 46.88 ml/min; Glucose 116 mg/dL (74-106); Potassium 4.1 mmol/L (3.5-5.1); Sodium Level 139 mmol/L (136-145)
[2020-06-06 06:41] LABS: Bedside Glucose 141 mg/dL (70-110)
[2020-06-06 07:15] VITALS: O2SAT 97
[2020-06-06] MEDS: Cyanocobalamin 500 MCG Tablet 1000 MCG PO (07:48)
[2020-06-06] MEDS: Glimepiride 2 MG Tablet PO (07:48)
[2020-06-06] MEDS: Magnesium Chloride 64 MG Delay Rel.Tablet PO ×2 (07:48→18:33)
[2020-06-06] MEDS: Venlafaxine HCl 75 MG Tablet 150 MG PO (07:48)
[2020-06-06] MEDS: Multivitamins,Therapeutic Tablet 1 TABLET PO (07:48)
--- NOTE | 2020-06-06 09:12 | CASEMGMT ---
Addendum entered by Heaven Subramanian 06/06/20 10:22: Notified [facility] of DC date and possible appeal. Faxed updated clinical information. Completed PASRR. Will submit for LOC. Plan: DC to the [facility] 06/09 Original Note: Social Work Insurance issued a LCD 06/08, DC 06/09. Spoke with dtr about DC date and explained appeal rights. Dtr is considering appealing as she would like more time for the insurance to cover her mom's stay. Emailed NOMNC to dtr. Dtr agreeable for pt to transfer to the [facility] for LTP. Dtr actively working on getting documents for Medicaid. Explained the [facility] will assist with continuing application process. Encouraged dtr to notify SW if dtr chooses to appeal. Will continue to follow. Heaven Subramanian, JORGE MORINW
[2020-06-06 14:13] VITALS: BP 146/75; PULSE 81; RESP 18; TEMP 36.6; O2SAT 90
--- NOTE | 2020-06-06 15:58 | NURSING ---
Resident and daughter, Amairani, notified of staff testing positive for COVID 19.
--- NOTE | 2020-06-06 19:20 | DCINST_ITS ---
- Discharge Diagnoses Current Active Problems: Current Active and Chronic Problems Parkinson disease (Chronic) Debility (Acute) Carotid artery stenosis (Chronic) Hyperlipidemia (Chronic) Vitamin B12 deficiency (Chronic) Edema (Chronic) Hypomagnesemia (Chronic) Depression (Chronic) Body mass index (BMI) greater than 70 in adult (Chronic) CVA (cerebral vascular accident) (Acute) Hemorrhagic stroke (Chronic) Afib (Chronic) Diabetes (Chronic) You will use the following diet at home:: No restrictions, Regular Your food should be the consistency of: Regular Your liquids should be the consistency of: Regular/Thin Discharge Activity: Return to Normal Activity, May Shower, Use Walker Weight Bearing Status: Weight bearing as tolerated Call your doctor if you observe: Fever of 101 or Higher, Inability to urinate, Inability to have a bowel movement, Shortness of breath, Chest pain, Uncontrolled pain Allergies/Adverse Reactions: Allergies aspirin Allergy (Verified 05/18/20 23:52) Hives Penicillins Allergy (Verified 05/18/20 12:14) PT UNABLE TO RESPOND-NEEDS F/U Medications to take at Discharge Carbidopa/Levodopa [Carbidopa-Levodopa 25-250 Tab] 1 ea PO TID 05/18/20 Cyanocobalamin (Vitamin B-12) [Vitamin B-12] 1,000 mcg PO DAILY 05/18/20 Furosemide [Lasix] 40 mg PO DAILY 05/18/20 Glimepiride [Amaryl] 2 mg PO DAILY 05/18/20 Magnesium Oxide [Magnesium] 400 mg PO BID 05/18/20 Multivitamins,Therapeutic [Multivitamin] 1 tab PO DAILY 05/18/20 Venlafaxine HCl [Effexor Xr] 75 mg PO QHS 05/18/20 Venlafaxine HCl [Effexor] 150 mg PO BREAKFAST 05/18/20 Verapamil HCl [Verapamil ER] 240 mg PO DAILY 05/18/20 Atorvastatin Calcium [Lipitor] 80 mg PO QHS 05/22/20 Carvedilol [Coreg (Beta Giovanni)] 6.25 mg PO BID 05/22/20 Acetaminophen [Tylenol] 1,000 mg PO Q6H PRN tablet 06/06/20 Menthol [Blue Gel] 1 applic TP 4X/DAY PRN PRN jar 06/06/20 Menthol/Lanolin/Calamine/Znox [Calmoseptine Ointment] 1 applic TOPICAL 0600,2200 tube 06/06/20 Nystatin Powder [Mycostatin Powder] 1 applic TOPICAL 0600,2200 bottle 06/06/20 busPIRone [Buspar] 5 mg PO TID tablet 06/06/20 Primary Care Physician: Saúl Pa DO [Primary Care Provider] - Please follow up with your Primary Care Physician in: 1 week. Test Results: Test results from this visit will be discussed in further detail at your follow- up appointment, if applicable. Please Follow Up With: Chivo Vivar MD (Neuro) When: 2 weeks Proposed Discharge Date: 06/09/20
--- NOTE | 2020-06-06 19:21 | DS.PCM_ITS ---
Discharge Date and Diagnosis - Problem List Patient Problems: Active and Suspected Problems Debility (Acute) CVA (cerebral vascular accident) (Acute) Date of Admission: 05/22/20 Date of Discharge: 06/09/20 - Primary Discharge Diagnosis Acute Problems: Active Problems Debility (Acute) CVA (cerebral vascular accident) (Acute) - Secondary Discharge Diagnosis Chronic Problems: Chronic Problems Dysphagia (Chronic) Parkinson disease (Chronic) Carotid artery stenosis (Chronic) Hyperlipidemia (Chronic) Vitamin B12 deficiency (Chronic) Edema (Chronic) Hypomagnesemia (Chronic) Depression (Chronic) Body mass index (BMI) greater than 70 in adult (Chronic) Chronic respiratory failure with hypoxia, on home O2 therapy (Chronic) Hemorrhagic stroke (Chronic) Afib (Chronic) Morbid obesity (Chronic) Diabetes (Chronic) Hospital Course and Treatment Imaging Results: 05/30/20 07:33 Diet: Cardiac - Heart Healthy Food consistency:: Mechanical (Minced/Moist) Liquid Consistency:: Regular/Thin Dietary Modifications:: Consistent Carbohydrate Is pt able to select menu?: Yes Diet Comments: 1:1 Supervision, only feed when alert, Single Bites Labs (Last 48 Hours) 06/05/20 06/06/20 06/06/20 06:33 05:10 05:10 WBC 8.3 RBC 4.18 L Hgb 12.5 Hct 40.6 MCV 97.1 MCH 29.9 MCHC 30.8 L RDW Std Deviation 50.2 H RDW Coeff of Ever 14.1 Plt Count 249 MPV 9.3 Immature Gran % (Auto) 0.200 Neut % (Auto) 72.2 H Lymph % (Auto) 16.7 L [place] % (Auto) 7.7 Eos % (Auto) 2.8 Baso % (Auto) 0.4 Absolute Neuts (auto) 6.0 Absolute Lymphs (auto) 1.38 Nucleated RBC % 0 Sodium 139 Potassium 4.1 Chloride 103 Carbon Dioxide 30.0 Anion Gap 6 BUN 22 H Creatinine 0.95 Estim Creat Clear Calc 46.88 Est GFR (MDRD) Af Amer 75 Est GFR (MDRD) Non-Af 62 BUN/Creatinine Ratio 23.2 H Glucose 116 H Calcium 8.6 POC Glucose 180 H 06/06/20 06:20 WBC RBC Hgb Hct MCV MCH MCHC RDW Std Deviation RDW Coeff of Ever Plt Count MPV Immature Gran % (Auto) Neut % (Auto) Lymph % (Auto) [place] % (Auto) Eos % (Auto) Baso % (Auto) Absolute Neuts (auto) Absolute Lymphs (auto) Nucleated RBC % Sodium Potassium Chloride Carbon Dioxide Anion Gap BUN Creatinine Estim Creat Clear Calc Est GFR (MDRD) Af Amer Est GFR (MDRD) Non-Af BUN/Creatinine Ratio Glucose Calcium POC Glucose 141 H Operations: None Procedures: None Summary of Care Provided: The patient is a 70 year old Female with below past medical history hospitalized for right MCA stroke, unable to give antiplatelet agents or anticoagulation due to history of hemorrhagic stroke, admitted to TCU with debility, here for rehabilitation, strengthening, prior to discharge home with family. Discharge to [facility], nonskilled. Patient Problems: Active and Suspected Problems Debility (Acute) CVA (cerebral vascular accident) (Acute) - Physical Exam Vitals/I&O's: Vital Signs Temp Pulse Resp BP Pulse Ox 97.9 F 81 18 146/75 H 90 06/06/20 14:13 06/06/20 14:13 06/06/20 14:13 06/06/20 14:13 06/06/20 14:13 Oxygen Flow Rate (L/min) 2 Oxygen Delivery Method Room Air Weight: 120.021 kg Body Mass Index (BMI) 47.1 Finger Stick Blood Glucose 170 Intake and Output for Last 24 Hours 06/04/20 06/05/20 06/06/20 23:59 23:59 23:59 Intake Total 1200 / 1200 840 / 840 700 / 700 Balance 1200 / 1200 840 / 840 700 / 700 Laboratory Results 06/06/20 05:10: WBC 8.3, RBC 4.18 L, Hgb 12.5, Hct 40.6, MCV 97.1, MCH 29.9, MC HC 30.8 L, RDW Std Deviation 50.2 H, RDW Coeff of Ever 14.1, Plt Count 249, MPV 9.3, Immature Gran % (Auto) 0.200, Neut % (Auto) 72.2 H, Lymph % (Auto) 16.7 L, [place] % (Auto) 7.7, Eos % (Auto) 2.8, Baso % (Auto) 0.4, Absolute Neuts (auto) 6.0, Absolute Lymphs (auto) 1.38, Nucleated RBC % 0 06/06/20 05:10: Sodium 139, Potassium 4.1, Chloride 103, Carbon Dioxide 30.0, Anion Gap 6, BUN 22 H, Creatinine 0.95, Estim Creat Clear Calc 46.88, Est GFR (MDRD) Af Amer 75, Est GFR (MDRD) Non-Af 62, BUN/Creatinine Ratio 23.2 H, Glucose 116 H, Calcium 8.6 06/06/20 06:20: POC Glucose 141 H Current Medications Acetaminophen (Acetaminophen 500 Mg Tablet) 1,000 mg PO Q6H PRN PRN Reason: Pain Score 1-10 Last Admin: 05/23/20 04:36 Dose: 1,000 mg Documented by: Atorvastatin Calcium (Atorvastatin Calcium 80 Mg Tablet) 80 mg PO QHS [facility] Last Admin: 06/05/20 21:24 Dose: 80 mg Documented by: Bisacodyl (Bisacodyl 10 Mg Suppository) 10 mg RECTAL DAILY PRN PRN Reason: Constipation Buspirone HCl (Buspirone 5 Mg Tablet) 5 mg PO TID [facility] Last Admin: 06/06/20 15:17 Dose: 5 mg Documented by: Calamine/Phenol (Menthol/Lanolin/Calamine/Znox 113 Gm Tube) 1 applic TOPICAL 0600,2200 [facility]; Protocol Last Admin: 06/06/20 05:43 Dose: 1 applicatio Documented by: Carbidopa/Levodopa (Carbidopa/Levodopa 25/250 Tablet) 1 tablet PO TID [facility] Last Admin: 06/06/20 15:15 Dose: 1 tablet Documented by: Carvedilol (Carvedilol 6.25 Mg Tablet) 6.25 mg PO BID [facility] Last Admin: 06/06/20 18:34 Dose: 6.25 mg Documented by: Cyanocobalamin (Cyanocobalamin 500 Mcg Tablet) 1,000 mcg PO DAILYCM [facility] Last Admin: 06/06/20 07:48 Dose: 1,000 mcg Documented by: Furosemide (Furosemide 40 Mg Tablet) 40 mg PO DAILY [facility] Last Admin: 06/06/20 05:41 Dose: 40 mg Documented by: [facility]pir[facility] Admin: 06/06/20 07:48 Dose: 2 mg Documented by: Magnesium Chloride (Magnesium Chloride 64 Mg Delay Rel.Tablet) 64 mg PO BIDCM [facility] Last Admin: 06/06/20 18:33 Dose: 64 mg Documented by: Magnesium Hydroxide (Magnesium Hydroxide 30 Ml Udc) 30 ml PO DAILY PRN PRN Reason: Constipation Menthol (Menthol 226.8 Gm Jar) 1 applic TP 4X/DAY PRN PRN PRN Reason: Pain Score 1-10 (SHOULDERS) Last Admin: 05/31/20 22:05 Dose: 1 applic Documented by: Multivitamins (Multivitamins,Therapeutic Tablet) [facility] Last Admin: 06/06/20 07:48 Dose: 1 tablet Documented by: Nystatin (Nystatin Powder 15gm Bottle) 1 applic TOPICAL 0600,2200 [facility]; Protocol Last Admin: 06/06/20 05:43 Dose: 1 applicatio Documented by: Polyethylene Glycol (Polyethylene Glycol 3350 17 Gm Packet) 17 gm PO DAILY [facility] Last Admin: 06/06/20 05:43 Dose: 17 gm Documented by: Senna/Docusate Sodium (Senna/Docusate Sodium 1 Tablet) 1 tablet PO BID [facility] Last Admin: 06/06/20 18:34 Dose: 1 tablet Documented by: Venlafaxine HCl (Venlafaxine Hcl 75 Mg Tablet) 150 mg PO BREAKFAST [facility] Last Admin: 06/06/20 07:48 Dose: 150 mg Documented by: Venlafaxine HCl (Venlafaxine Xr 75 Mg Capsule) 75 mg PO QHS [facility] Last Admin: 06/05/20 21:24 Dose: 75 mg Documented by: Verapamil HCl (Verapamil Sr 240 Mg Tablet) 120 mg PO DAILY [facility] Last Admin: 06/06/20 05:41 Dose: 120 mg Documented by: Discharge Diet: No Restrictions Discharge Activity: Return to Normal Activity, May Shower, Use Walker Weight Bearing Status: Weight bearing as tolerated Call your doctor if you observe: Fever of 101 or Higher, Inability to urinate, Inability to have a bowel movement, Shortness of breath, Chest pain, Uncontrolled pain Home Medications: Medications to take at Discharge Carbidopa/Levodopa [Carbidopa-Levodopa 25-250 Tab] 1 ea PO TID 05/18/20 Cyanocobalamin (Vitamin B-12) [Vitamin B-12] 1,000 mcg PO DAILY 05/18/20 Furosemide [Lasix] 40 mg PO DAILY 05/18/20 Glimepiride [Amaryl] 2 mg PO DAILY 05/18/20 Magnesium Oxide [Magnesium] 400 mg PO BID 05/18/20 Multivitamins,Therapeutic [Multivitamin] 1 tab PO DAILY 05/18/20 Venlafaxine HCl [Effexor Xr] 75 mg PO QHS 05/18/20 Venlafaxine HCl [Effexor] 150 mg PO BREAKFAST 05/18/20 Verapamil HCl [Verapamil ER] 240 mg PO DAILY 05/18/20 Atorvastatin Calcium [Lipitor] 80 mg PO QHS 05/22/20 Carvedilol [Coreg (Beta Giovanni)] 6.25 mg PO BID 05/22/20 Acetaminophen [Tylenol] 1,000 mg PO Q6H PRN tablet 06/06/20 Menthol [Blue Gel] 1 applic TP 4X/DAY PRN PRN jar 06/06/20 Menthol/Lanolin/Calamine/Znox [Calmoseptine Ointment] 1 applic TOPICAL 0600,2200 tube 06/06/20 Nystatin Powder [Mycostatin Powder] 1 applic TOPICAL 0600,2200 bottle 06/06/20 busPIRone [Buspar] 5 mg PO TID tablet 06/06/20 Primary Care Physician: Saúl Pa DO [Primary Care Provider] - Please follow up with your Primary Care Physician in: 1 week. Please Follow Up With: Chivo Vivar MD (Neuro) When: 2 weeks Disposition: [facility]std Living/Non-Skill [facility] Minutes spent on discharge:: 35 Patient Condition:: Stable Medical Necessity - Tobacco Use Smoking Status: Never smoker Tobacco Use: Secondhand Meaningful Use Info Meaningful Use Diagnoses (Choose all that apply): None applicable
--- NOTE | 2020-06-06 19:23 | PCM.TXEXTCAR ---
- Diet 05/30/20 07:33 Diet: Cardiac - Heart Healthy Food consistency:: Mechanical (Minced/Moist) Liquid Consistency:: Regular/Thin Dietary Modifications:: Consistent Carbohydrate Is pt able to select menu?: Yes Diet Comments: 1:1 Supervision, only feed when alert, Single Bites - Routine Orders/Code Status Suppository Type: Dulcolax 10mg Suppository Frequency: Daily PRN Code Status: DNRCC-A - No intubation. - Wound(s) radha cleft Wound Type: healing moisture Dressing Change: mary - Therapies Weight Bearing: Weight bearing as tolerated - Problem/Diagnosis (1) Debility Status: Acute (2) Carotid artery stenosis Status: Chronic (3) Hyperlipidemia Status: Chronic (4) Vitamin B12 deficiency Status: Chronic (5) Edema Status: Chronic (6) Hypomagnesemia Status: Chronic (7) Depression Status: Chronic (8) Parkinson disease Status: Chronic (9) CVA (cerebral vascular accident) Status: Acute (10) Hemorrhagic stroke Status: Chronic (11) Afib Status: Chronic (12) Diabetes Status: Chronic (13) Body mass index (BMI) greater than 70 in adult Status: Chronic - Allergies/Procedures Done in Hospital Allergies/Adverse Reactions: Allergies aspirin Allergy (Verified 05/18/20 23:52) Hives Penicillins Allergy (Verified 05/18/20 12:14) PT UNABLE TO RESPOND-NEEDS F/U - Type of Care/Length of Stay Estimated LOS: More Than 30 Days Type of Care Needed: Intermediate Rehab Potential: Fair Prognosis: Fair - Additional Orders/Day of Discharge Day of Discharge: 06/09/20 - Dietary and Speech Recommendations Dietitian Recommendations/Changes: Will continue CHO Controlled / Cardiac w/ consistency per [employer]PER[employer] Speech Linguistic Eval Summary: Pt oriented to name, , date, and location. Pt required cuing to provide more detailed reason for admission. Pt with flat affect reports recent diagnosis of Parkinsons (Summer 2019). Pt able to follow 1 step directions although slow to respond or process at times. Pt reports having occasional difficulty with words and completes word puzzles at home. Pt reports poor memory and states she writes everything down. Pt lives with daughter and two grandchildren. Pt reports her daughter handles all of her medication and financial tasks. Further cognitive-linguistic assessment may be warranted prior to discharge. - Follow Up Care Primary Care Physician: Saúl Pa DO [Primary Care Provider] - Please follow up with your Primary Care Physician in: 1 week. Please Follow Up With: Chivo Vivar MD (Neuro) When: 2 weeks
[2020-06-06] MEDS: Atorvastatin Calcium 80 MG Tablet PO (20:01)
[2020-06-06] MEDS: Venlafaxine XR 75 MG Capsule PO (20:01)
[2020-06-07 05:35] VITALS: BP 182/86; PULSE 92; RESP 16; TEMP 36.3; O2SAT 96
[2020-06-07] MEDS: busPIRone 5 MG Tablet PO ×3 (05:37→21:11)
[2020-06-07] MEDS: Verapamil SR 240 MG Tablet 120 MG PO (05:38)
[2020-06-07] MEDS: Carvedilol 6.25 MG Tablet PO ×2 (05:38→16:24)
[2020-06-07] MEDS: Furosemide 40 MG Tablet PO (05:38)
[2020-06-07] MEDS: Senna/Docusate Sodium 1 Tablet PO ×2 (05:38→16:25)
[2020-06-07] MEDS: Polyethylene Glycol 3350 17 GM PACKET PO (05:38)
[2020-06-07] MEDS: Menthol/Lanolin/Calamine/Znox 113 GM Tube 1 APPLIC TOPICAL ×2 (05:38→21:10)
[2020-06-07] MEDS: Carbidopa/Levodopa 25/250 Tablet PO ×3 (05:39→21:11)
[2020-06-07] MEDS: Nystatin Powder 15gm Bottle 1 APPLIC TOPICAL ×2 (05:40→21:10)
[2020-06-07 06:26] LABS: Bedside Glucose 177 mg/dL (70-110)
[2020-06-07 07:27] VITALS: O2SAT 98
[2020-06-07] MEDS: Magnesium Chloride 64 MG Delay Rel.Tablet PO ×2 (08:25→16:24)
[2020-06-07] MEDS: Cyanocobalamin 500 MCG Tablet 1000 MCG PO (08:26)
[2020-06-07] MEDS: Multivitamins,Therapeutic Tablet 1 TABLET PO (08:26)
[2020-06-07] MEDS: Glimepiride 2 MG Tablet PO (08:26)
[2020-06-07] MEDS: Venlafaxine HCl 75 MG Tablet 150 MG PO (08:26)
[2020-06-07 10:08] VITALS: PULSE 82; RESP 18; O2SAT 99
[2020-06-07 13:00] VITALS: BP 143/60; PULSE 88; RESP 17; TEMP 35.7; O2SAT 95
--- NOTE | 2020-06-07 13:16 | CASEMGMT ---
Social Work Received LOC approval for transfer to [place] 06/09. Scheduled w/c transport through [facility] for 12 pm. Faxed [facility]. 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 No appeal has been filed. JORGE SampsonW
--- NOTE | 2020-06-07 13:22 | PHA.DC.MR ---
Pharmacy Service has performed discharge medication reconciliation for this patient. The patient's discharge medication list was reviewed for discrepancies and discrepancies were resolved. Home Medications Carbidopa/Levodopa [Carbidopa-Levodopa 25-250 Tab] 1 ea PO TID 05/18/20 Cyanocobalamin (Vitamin B-12) [Vitamin B-12] 1,000 mcg PO DAILY 05/18/20 Furosemide [Lasix] 40 mg PO DAILY 05/18/20 Glimepiride [Amaryl] 2 mg PO DAILY 05/18/20 Magnesium Oxide [Magnesium] 400 mg PO BID 05/18/20 Multivitamins,Therapeutic [Multivitamin] 1 tab PO DAILY 05/18/20 Venlafaxine HCl [Effexor Xr] 75 mg PO QHS 05/18/20 Venlafaxine HCl [Effexor] 150 mg PO BREAKFAST 05/18/20 Verapamil HCl [Verapamil ER] 240 mg PO DAILY 05/18/20 Atorvastatin Calcium [Lipitor] 80 mg PO QHS 05/22/20 Carvedilol [Coreg (Beta Giovanni)] 6.25 mg PO BID 05/22/20 Acetaminophen [Tylenol] 1,000 mg PO Q6H PRN tab 06/06/20 Menthol [Blue Gel] 1 applic TP 4X/DAY PRN PRN jar 06/06/20 Menthol/Lanolin/Calamine/Znox [Calmoseptine Ointment] 1 applic TOPICAL 0600,2200 tube 06/06/20 Nystatin Powder [Mycostatin Powder] 1 applic TOPICAL 0600,2200 bottle 06/06/20 busPIRone [Buspar] 5 mg PO TID tab 06/06/20
[2020-06-07] MEDS: Venlafaxine XR 75 MG Capsule PO (21:11)
[2020-06-07] MEDS: Atorvastatin Calcium 80 MG Tablet PO (21:12)
[2020-06-08 05:26] VITALS: BP 155/87; PULSE 94; RESP 16; TEMP 36.6; O2SAT 99
[2020-06-08] MEDS: Furosemide 40 MG Tablet PO (05:29)
[2020-06-08] MEDS: Carvedilol 6.25 MG Tablet PO ×2 (05:29→16:55)
[2020-06-08] MEDS: busPIRone 5 MG Tablet PO ×3 (05:29→22:17)
[2020-06-08] MEDS: Senna/Docusate Sodium 1 Tablet PO ×2 (05:29→16:54)
[2020-06-08] MEDS: Verapamil SR 240 MG Tablet 120 MG PO (05:29)
[2020-06-08] MEDS: Carbidopa/Levodopa 25/250 Tablet PO ×3 (05:29→22:20)
[2020-06-08] MEDS: Menthol/Lanolin/Calamine/Znox 113 GM Tube 1 APPLIC TOPICAL ×2 (05:29→22:17)
[2020-06-08] MEDS: Nystatin Powder 15gm Bottle 1 APPLIC TOPICAL ×2 (05:30→22:20)
[2020-06-08 06:26] LABS: Bedside Glucose 137 mg/dL (70-110)
[2020-06-08] MEDS: Venlafaxine HCl 75 MG Tablet 150 MG PO (08:36)
[2020-06-08] MEDS: Glimepiride 2 MG Tablet PO (08:36)
[2020-06-08] MEDS: Magnesium Chloride 64 MG Delay Rel.Tablet PO ×2 (08:36→16:55)
[2020-06-08] MEDS: Cyanocobalamin 500 MCG Tablet 1000 MCG PO (08:37)
[2020-06-08] MEDS: Multivitamins,Therapeutic Tablet 1 TABLET PO (08:37)
[2020-06-08] MEDS: Polyethylene Glycol 3350 17 GM PACKET PO (08:42)
--- NOTE | 2020-06-08 08:47 | CASEMGMT ---
Social Work BIMS and PHQ-9 were completed for MDS assessment. Heaven Subramanian, REALTIME CAPTIONER LOBBYIST
[2020-06-08 11:02] VITALS: O2SAT 98
[2020-06-08 15:19] VITALS: BP 152/68; PULSE 93; RESP 18; TEMP 36.6; O2SAT 97
[2020-06-08] MEDS: Atorvastatin Calcium 80 MG Tablet PO (22:19)
[2020-06-08] MEDS: Venlafaxine XR 75 MG Capsule PO (22:19)
[2020-06-09] MEDS: Polyethylene Glycol 3350 17 GM PACKET PO (06:24)
[2020-06-09] MEDS: Carbidopa/Levodopa 25/250 Tablet PO (06:25)
[2020-06-09] MEDS: Furosemide 40 MG Tablet PO (06:25)
[2020-06-09] MEDS: Carvedilol 6.25 MG Tablet PO (06:26)
[2020-06-09] MEDS: Menthol/Lanolin/Calamine/Znox 113 GM Tube 1 APPLIC TOPICAL (06:26)
[2020-06-09] MEDS: Senna/Docusate Sodium 1 Tablet PO (06:26)
[2020-06-09] MEDS: busPIRone 5 MG Tablet PO (06:26)
[2020-06-09] MEDS: Verapamil SR 240 MG Tablet 120 MG PO (06:26)
[2020-06-09] MEDS: Nystatin Powder 15gm Bottle 1 APPLIC TOPICAL (06:27)
[2020-06-09 06:36] LABS: Bedside Glucose 158 mg/dL (70-110)
[2020-06-09 06:48] VITALS: BP 157/79; PULSE 77; RESP 18; TEMP 36.9; O2SAT 94
[2020-06-09 06:49] VITALS: O2SAT 97
[2020-06-09] MEDS: Magnesium Chloride 64 MG Delay Rel.Tablet PO (08:39)
[2020-06-09] MEDS: Multivitamins,Therapeutic Tablet 1 TABLET PO (08:39)
[2020-06-09] MEDS: Glimepiride 2 MG Tablet PO (08:39)
[2020-06-09] MEDS: Venlafaxine HCl 75 MG Tablet 150 MG PO (08:39)
[2020-06-09] MEDS: Cyanocobalamin 500 MCG Tablet 1000 MCG PO (08:40)
[2020-06-09 10:00] VITALS: PULSE 94; RESP 18; O2SAT 98
[2020-06-09 12:35] VITALS: BP 151/96; PULSE 94; RESP 16; TEMP 36.4; O2SAT 98
== END 2020-06-09 12:42 | disposition skilled nursing facility (03) | DRG 57 ==
PROVIDERS: Admitting Provider Family Medicine Geriatric Medicine; PCP Family Medicine; Visit Provider Family Medicine Geriatric Medicine
DX: I69.322 Dysarthria following cerebral infarction (principal); I48.20 Chronic atrial fibrillation, unspecified; J96.11 Chronic respiratory failure with hypoxia; Z68.42 Body mass index [BMI] 45.0-49.9, adult; I69.392 Facial weakness following cerebral infarction; E78.5 Hyperlipidemia, unspecified; G20 Parkinson's disease; F32.9 Major depressive disorder, single episode, unspecified; E11.9 Type 2 diabetes mellitus without complications; E66.01 Morbid (severe) obesity due to excess calories; B35.4 Tinea corporis; F41.9 Anxiety disorder, unspecified
CPT/HCPCS: 36415; 80048; 82962; 85025; 87426; 87635; 92507; 92523; 92526; 92610; 97110; 97116; 97162; 97166; 97530; 97535; 97802; U0003

== ENCOUNTER 2020-11-12 08:16 | Emergency (ER) | payer MEDICARE, MEDICAID, SELFPAY ==
[2020-11-12 08:17] VITALS: BP 169/142; PULSE 119; RESP 20; TEMP 36.6; O2SAT 95; BMI 50.1
--- NOTE | 2020-11-12 08:31 | EKG12_ITS ---
Test Reason : Blood Pressure : / mmHG Vent. Rate : 118 BPM Atrial Rate : 394 BPM P-R Int : 000 ms QRS Dur : 128 ms QT Int : 380 ms P-R-T Axes : 000 129 021 degrees QTc Int : 532 ms Atrial fibrillation with rapid ventricular response Right bundle branch block Abnormal ECG Confirmed by FOSTER PIERSON, MICHELLE ([id number]), supervising film or videotape editor TANJA WILKERSON ([id number]) on 11/14/2020 11:00:22 AM Referred By: ROBERT Confirmed By:MICHELLE HUTCHISON MD
--- NOTE | 2020-11-12 08:31 | CT_ITS ---
STUDY: CT BRAIN WITHOUT CONTRAST REASON FOR EXAM: Female, 70 years old. cva RADIATION DOSAGE (If Supplied By Facility): CTDIvol = ( 44.99 ) mGy, DLP = ( 796.11 ) mGycm TECHNIQUE: Transaxial CT imaging of the brain was performed without administration of intravenous contrast material. Individualized dose optimization techniques were used for this CT. COMPARISON: Comparison is made with prior examination 05/18/2020. FINDINGS: Normal soft tissue structures. Normal calvarium. There is evidence of encephalomalacia in the right temporal parietal lobe suggestive of old infarction. There now is evidence of decreased attenuation with surrounding edema in the left cerebellar hemisphere suggestive of acute to subacute infarction. I also suspect petechial hemorrhage within the infarction. There is moderate cerebral atrophy with widening of the extra-axial spaces and ventricular dilatation. There are areas of decreased attenuation within the white matter tracts of the supratentorial brain, consistent with microvascular disease changes. Old lacunar infarct in the right basal ganglion and body of the right caudate nucleus. Normal brainstem. Normal visualized paranasal sinuses. CT/Brain/Head without Contrast IMPRESSION: Findings suggestive of acute to subacute infarction of the left cerebellar hemisphere with petechial hemorrhage. The infarction extends into the left cerebellar peduncle. Old infarction in the right temporal parietal lobes. Electronically Signed: Shaggy Paec MD at 10:04 EDT , Service support ,
--- NOTE | 2020-11-12 08:33 | ED.VIS.GEN ---
History of Present Illness Chief Complaint: Weakness Narrative: Presents for generalized weakness she is in a fpc. She apparently has not felt good for the past 3 days and finally she was sent to the emergency department this morning. As I walk into the room she has an obvious left-sided gaze palsy but she tells me this is chronic. Otherwise she is lucid and coherent can give me a reasonable history and review of systems. She has a history of a CVA, apparently all weekend she has been feeling ill and dizzy and she also had some vertiginous symptoms. She denies any chest pain or shortness of breath. No recent fever or chills. Past medical history: Hypertension, hypercholesterolemia, peripheral edema, hypomagnesemia, facial weakness which is chronic, CVA history, right bundle branch block, atrial fibrillation, CAD, cardiomegaly, Parkinson's disease, diabetes, chronic respiratory failure, history of intracerebral hemorrhage, dysphagia, morbid obesity. Medications: Reviewed in the SNF paperwork I do not see anticoagulants on her medication list. Social history: Noncontributory, lives in the fpc. DNR CCA no intubation. Review of systems: All systems negative except as indicated General: Denies: Fever. Generalized weakness Eyes: Denies: Visual changes - bilaterally ENT: Denies: Rhinorrhea, Sore throat Cardiovascular: Denies: Chest pain Respiratory: Denies: Dyspnea, Cough Gastrointestinal: Denies: Abdominal pain, Nausea, Vomiting Genitourinary: Denies: Dysuria Musculoskeletal: Denies: Myalgias Skin: Denies: Rash Neurological: No headache, however she has acute vertigo, dizziness and generalized weakness. No focal weakness. Hematologic: Denies: Easy bruising, Easy bleeding. She is not anticoagulated Physical exam General: Patient appears chronically ill. She does not appear in significant distress Head: Normocephalic, Atraumatic Eyes: Conjunctiva not pale. Pupils are 3 mm and reactive. She has left-sided gaze palsy ENT: Slightly dry mucous membranes Neck: Supple, Nontender, No lymphadenopathy Cardiovascular: Regular tachycardia Respiratory: No distress, coarse bilateral breath sounds Abdomen: Soft, Nontender, Nondistended Back: Nontender, Normal Inspection. Negative for: CVA tenderness Extremities: Bilateral lower extremity edema, there is venous stasis skin changes but no erythema or Calor or signs of cellulitis. Skin: Does not appeal pale. No obvious rash other than the venous stasis in the lower extremities Neurological: Is a left-sided gaze deviation. Otherwise she has normal strength normal sensation. She is lucid and coherent she is oriented she follows directions she does not have cerebellar dysfunction but I could not do a Romberg. Psychological: Flat affect. Past Medical History - Allergies and Home Meds Allergies/Adverse Reactions: Allergies aspirin Allergy (Verified 11/12/20 08:21) Hives Penicillins Allergy (Verified 11/12/20 08:21) PT UNABLE TO RESPOND-NEEDS F/U Primary Care Physician: Saúl Pa DO [NON-STAFF] - Surgical History: no surgical history Smoking Status: Never smoker - Family History Maternal Family History: Reports: No pertinent history Paternal Family History: Reports: No pertinent history Physical Exam Vital Signs/Narrative: Vital Signs Temp Pulse Resp BP Pulse Ox 11/12/20 08:17 97.9 F 119 H 20 H 169/142 H 95 Diagnostic/Tx/Re-eval Chest X-Ray - ED: 1 View, Read by ED Physician, Read by Radiologist, Normal, Heart - Medical Decision Making Patient presents with atrial fibrillation and some strokelike symptoms however the symptoms are 3 days old?the patient does not meet any criteria for TPA she also is found to have a subacute stroke on CT with a pontine bleed. I discussed the patient with [facility] neurologist I am told that the patient cannot stay at [facility] even though we are a stroke center because of the potential of worsening bleeding. Patient will be transferred to [facility] for neurological care per [facility] neurologist. ED Disposition - Plan for ED Patient: Disposition: [facility] Diagnosis: Cerebellar stroke, acute Referrals: Saúl Pa DO [NON-STAFF] -
[2020-11-12 09:00] VITALS: BP 134/101; PULSE 107; RESP 21; O2SAT 97
[2020-11-12 09:36] LABS: Absolute Lymphocyte Count 1.13 X10^3/uL (0.83-4.51); Absolute Neutrophil Count 12.2 X10^3/uL (2.0-7.7); Basophil# 0.05 X10^3/uL; Basophil% 0.4 % (0-1); Eosinophil# 0.02 X10^3/uL; Eosinophils% 0.1 % (0-5); Hematocrit 47.3 % (37-47); Hemoglobin 15.4 g/dL (12.0-15.0); Lymphocyte # 1.13 X10^3/ul (4.0); Mean Corp Hgb Conc 32.6 g/dL (32-36); Mean Corpuscular Hgb 32.6 pg (27.0-32.0); Monocyte# 0.75 X10^3/uL; Monocyte% 5.3 % (0-10); NRBC Flagged by Analyzer 0 % (0-5); Neutrophil # 12.18 X10^3/uL (2.7-7.7); Neutrophil % 85.7 % (47-70); Platelet Count 365 K/mm3 (150-450); RBC Distribution Width CV 14.5 % (11.6-14.6); RBC Distribution Width SD 53.9 fl (35.1-43.9); Red Blood Count 4.73 M/mm3 (4.2-5.4); White Blood Count 14.2 K/mm3 (4.4-11.0)
[2020-11-12 09:45] LABS: International Normalized Ratio 1.1; Prothrombin Time (Protime)PT. 13.3 SECONDS (11.7-14.9)
--- NOTE | 2020-11-12 09:50 | RAD_ITS ---
STUDY: X-RAY CHEST REASON FOR EXAM: Female, 70 years old. Weakness TECHNIQUE: Single AP portable view of the chest. COMPARISON: Comparison is made with prior study dated 05/18/2020. FINDINGS: EKG electrodes are seen. Hyperinflation. The lungs are clear. There is no demonstrated pleural abnormality. Normal size heart. Normal mediastinum and deb. Normal visualized pulmonary arteries. There is atherosclerotic calcification of the aortic arch with tortuosity. There are diffuse degenerative changes of the visualized thoracic spine. Prior fusion of the lower cervical spine. There is no demonstrated abnormality of the visualized soft tissue structures of the upper abdomen. RAD/Chest 1 View (Portable) IMPRESSION: Hyperinflation. The lungs are clear. Electronically Signed: Shaggy Pace MD at 10:05 EDT , Service support ,
[2020-11-12 09:54] LABS: ALB/GLOB Ratio 0.7 RATIO (0.9-2.4); AST(SGOT) 21 U/L (15-37); Alanine Aminotransfer ALT/SGPT 11 U/L (13-56); Albumin, Serum 3.4 g/dL (3.2-5.0); Alkaline Phosphatase 150 U/L (45-117); Anion Gap 5 (5-15); BUN 24 mg/dL (7-18); BUN/Creat Ratio 19.5 RATIO (10-20); Calcium,Total 9.3 mg/dL (8.5-10.1); Chloride 95 mmol/L (98-107); Creatinine, Serum 1.23 mg/dL (0.55-1.02); EST Glomerular Filtration Rate 46 mL/min (>60); Est Glom Filt Rate - Afr Amer 56 mL/min (>60); Estimated Creatinine Clearance 36.21 ml/min; Globulin 5.2 g/dL (2.2-4.2); Glucose 307 mg/dL (74-106); Lipase 167 U/L (73-393); Protein, Total 8.6 g/dL (6.4-8.2); Sodium Level 133 mmol/L (136-145)
[2020-11-12] MEDS: Labetalol (Prefilled) 20 MG/4 ML IV (10:00)
--- NOTE | 2020-11-12 10:05 | ED.RN ---
lactic acid 3.1. dr padillar4
[2020-11-12 10:06] LABS: Lactic Acid 3.1 mmol/L (0.4-1.9)
--- NOTE | 2020-11-12 10:56 | NURSING ---
PATIENT GOING TO [facility]
[2020-11-12 11:07] VITALS: BP 176/118; BP 178/117; PULSE 83; PULSE 99; RESP 19; RESP 20; O2SAT 97; O2SAT 98
--- NOTE | 2020-11-12 11:08 | ED.RN ---
[facility] WAITING FOR PHARMACY TO SEND UP LABETOLO. THIS NURSE SPOKE WITH THEM AGAIN ABOUT SENDING UP A DOSE.
--- NOTE | 2020-11-12 11:14 | NURSING ---
[facility] CALLED. ETA IS 30 MIN
[2020-11-12] MEDS: Labetalol 100 MG/20 ML Vial 20 MG IV (11:40)
[2020-11-12 11:43] VITALS: BP 142/80; PULSE 97; RESP 13; O2SAT 96
[2020-11-12 13:34] LABS: Reflex Lactate? Y
== END 2020-11-12 11:53 | disposition short-term general hospital (02) ==
PROVIDERS: Emergency Provider Emergency Medicine; PCP Family Medicine
DX: I63.9 Cerebral infarction, unspecified (principal); R53.1 Weakness; I48.91 Unspecified atrial fibrillation; J96.10 Chronic respiratory failure, unspecified whether with hypoxia or hypercapnia; I25.10 Atherosclerotic heart disease of native coronary artery without angina pectoris; G20 Parkinson's disease; E11.9 Type 2 diabetes mellitus without complications; I10 Essential (primary) hypertension; E78.00 Pure hypercholesterolemia, unspecified; R13.10 Dysphagia, unspecified; Z66 Do not resuscitate; E66.01 Morbid (severe) obesity due to excess calories; Z79.84 Long term (current) use of oral hypoglycemic drugs; Z79.899 Other long term (current) drug therapy; Z86.73 Personal history of transient ischemic attack (TIA), and cerebral infarction without residual deficits
CPT/HCPCS: 70450; 71045; 80053; 83605; 83690; 84484; 85025; 85610; 87040; 87426; 93005; 96374; 99285; A4216